=== PATIENT | female | born 1985 | race Caucasian/White ===

== ENCOUNTER 2021-09-14 17:16 | Emergency (ER) | payer OTHER, SELFPAY ==
--- NOTE | ~2021-09-14 | XR_ITS ---
EXAMINATION: [id number] INDICATION: Left rib pain TECHNIQUE: A frontal view of the chest and 3 views of the left ribs were obtained. COMPARISON: None. FINDINGS: The lungs are free of acute opacities. There is no pleural effusion or pneumothorax. The ca rdiomediastinal silhouette is normal. No displaced rib fracture is identified. IMPRESSION: 1. No acute cardiopulmonary abnormality or evidence of displaced rib fracture. Reviewed, dictated and finalized at location F. ING OR SKATING FRONT DESK CLERK
[2021-09-14 17:22] VITALS: BP 125/83; PULSE 98; RESP 20; TEMP 36.9; O2SAT 100
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
[2021-09-14 20:26] VITALS: BP 113/79; PULSE 93; RESP 16; O2SAT 99
[2021-09-14] MEDS: KETOROLAC 30 MG/ML VIAL (*BKC) IM (20:27)
[2021-09-14] MEDS: HYDROcodone/acetaminophen (*CRX) 5-325 MG TABLET 1 TAB PO (20:27)
[2021-09-14] MEDS: TETANUS,DIPHTHERIA,AC PERTUSSIS ADULT (0.5 ML) BOOSTRIX IM (21:59)
[2021-09-14 22:19] VITALS: BP 114/77; PULSE 96; RESP 16; O2SAT 100
== END 2021-09-14 22:02 | disposition home or self-care (01) ==
PROVIDERS: Emergency Provider Emergency Medicine; PCP Family Medicine
DX: S20.212A Contusion of left front wall of thorax, initial encounter (principal); Z23 Encounter for immunization; Y00.XXXA Assault by blunt object, initial encounter
CPT/HCPCS: 71101; 90471; 90715; 96372; 99283; A9270; J1885

== ENCOUNTER 2022-03-18 20:46 | Emergency (ER) | payer OTHER, SELFPAY ==
--- NOTE | ~2022-03-18 | CT_ITS ---
EXAMINATION: CT abdomen pelvis w con DATE: 03/18/2022 23:10 INDICATION: Abdominal pain and swelling TECHNIQUE: Computed tomography (CT) of the abdomen and pelvis was performed with 100 mL Omnipaque-300 intravenous contrast. Automated exposure control and iterative reconstruction technique were employe d. The dose-length product was 545.48 mGy-cm. COMPARISON: None FINDINGS: Mild linear atelectasis/scarring in the right lower lobe. Heart size is normal. No pericardial or ple ural effusion. Liver, gallbladder, spleen, pancreas, bilateral adrenal glands and kidneys are normal. Bladder is normal. Tampon within the vaginal vault. Anteverted uterus is normal. 2.8 cm left adnexal cyst and 10 mm peripherally enhancing likely corpus luteum cyst in the left ovary. 28.3 x 17.3 x 25. 9 cm complex cystic lesion arising from the right ovary with a few mildly thinned internal septations . No nodular soft tissue component appreciated. Small amount of likely physiologic free fluid in the cul-de-sac. No pathologically enlarged abdominal or pelvic lymphadenopathy. Bones are unremarkable. IMPRESSION: 1. 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 Recommend M1A1 TANK CREWMAN consultation. Reviewed, dictated and finalized at location B. IMPRESSION: 1. 28 x 17 x 26 cm complex cystic mass which appears to originate from the righ t adnexa with a few thin internal septations but no nodular soft tissue compone nts consistent with neoplasm and would favor cystadenoma over cystadenocarcinom a. Recommend M1A1 TANK CREWMAN consultation.
--- NOTE | ~2022-03-18 | XR_ITS ---
EXAMINATION: XR chest 2V 03/18/2022 21:48 INDICATION: Dyspnea. Lower extremity swelling and edema. PROCEDURE: 2 view chest COMPARISON: No prior studies for comparison. FINDINGS: The lungs are clear. The cardiomediastinal silhouette is within normal limits. There are no pleural effusions. There is no pneumothorax suspected. IMPRESSION: 1: NO ACUTE CARDIOPULMONARY DISEASE. Reviewed, dictated and finalized at location A.
[2022-03-18 20:56] VITALS: BP 121/88; PULSE 119; RESP 20; TEMP 36.7; O2SAT 100
[2022-03-18 21:35] VITALS: BP 124/90; PULSE 82; RESP 16; TEMP 36.8; O2SAT 98
--- NOTE | 2022-03-18 22:06 | ECG_ITS ---
Measurements Intervals [place] Rate: 81 P: 49 ME: 143 QRS: 38 QRSD: 80 T: 27 QT: 375 QTc: 437 Interpretive Statements SINUS RHYTHM BASELINE ARTIFACT- V1, V3-V5 NORMAL ECG Electronically Signed On 03-19-2022 6:38:40 CDT by Mick Quiroga D.O.
[2022-03-18 22:10] LABS: Basophils Percent Auto 0.3 % (0.2-1.2); Eosinophils Absolute Auto 0.3 K/mm3 (0-0.3); Eosinophils Percent Auto 3.2 % (0-4.4); Hematocrit 39.7 % (37.0-47.0); Hemoglobin 12.9 g/dL (12.0-15.0); Immature Granulocyte Absolute 0.03 K/mm3 (0.00-0.031); Immature Granulocyte Percent A 0.3 % (0-0.5); Lymphocytes Absolute Auto 2.46 K/mm3 (0.9-3.2); Lymphocytes Percent Auto 23.5 % (18.3-44.2); Mean Corpuscular HGB Conc 32.5 g/dl (32-36); Mean Corpuscular Hemoglobin 31.5 pg (26-34); Mean Corpuscular Volume 96.8 fl (80-100); Monocytes Absolute Auto 0.7 K/mm3 (0.1-0.6); Monocytes Percent Auto 6.9 % (2.6-8.5); Neutrophils Absolute Auto 6.9 K/mm3 (1.3-6.7); Neutrophils Percent Auto 65.8 % (45.5-73.1); Platelet Count Result 279 k/mm3 (150-375); Red Cell Distribution Width 12.3 % (11.5-14.5); White Blood Count 10.5 K/mm3 (4.5-10.0)
[2022-03-18 22:11] LABS: Appearance Urine Slightly Cloudy (Clear); Bilirubin Urine Negative (Negative); Color Urine Yellow (Yellow); Glucose Urine UA Negative (Negative); Ketones Urine Trace mg/dL (Negative); Leukocyte Esterase Ur Negative LEU/UL (Negative); Nitrate Urine Positive (Negative); Protein Urine Negative (Negative); Specific Grav Ur >= 1.030 (1.001-1.035); Urobilinogen Urine 0.2 mg/dL (<2.0)
--- NOTE | 2022-03-18 22:14 | ED.ABDPAIN ---
HPI - Abdominal Pain General Chief Complaint: Abdominal Pain Stated Complaint: swollen abd/ankles Time Seen by Provider: 03/18/22 21:18 Source: patient Mode of arrival: ambulatory Limitations: no limitations History of Present Illness HPI narrative: This is a 37 year old female that presents to the ER for abdominal swelling worsening over the last 6 months. Associated with lower extremity edema and constipation. Denies fever, chest pain, shortness of breath, or vomiting. Related Data Allergies Allergy/AdvReac Type Severity Reaction Status Date / Time No Known Allergies Allergy Unverified 11/20/18 14:52 Review of Systems Review of Systems: CONSTITUTIONAL: Denies fever CARDIOVASCULAR: Reports edema. Denies chest pain RESPIRATORY: Denies dyspnea. GASTROINTESTINAL: Reports abdominal pain. Denies nausea, vomiting, or diarrhea. GENITOURINARY: Denies dysuria All systems reviewed & are unremarkable except as noted in HPI and below PMFSH Past Medical History Medical History (Updated 03/19/22 @ 02:41 by Rona Nance PA-C) No active medical problems Social History Social History (Updated 03/18/22 @ 22:19 by Rona Nance PA-C) Alcohol intake: former Substance use: current Substance use type: marijuana and crack/cocaine Exam Narrative: GENERAL: Well-appearing, well-nourished, and in no acute distress. HEAD: Normocephalic, atraumatic. EYES: EOMI. CHEST: Clear to auscultation. No respiratory distress. No wheezes rales or rhonchi HEART: Regular rate and rhythm. No murmur heard. Normal peripheral pulses. ABDOMEN: Distended, nontender, normal active bowel sounds. EXTREMITIES: Normal range of motion. Non-pitting edema noted to the bilateral lower extremities. Normal DP pulses. No erythema SKIN: Warm, dry, no rash. NEURO: No focal deficits. Alert and oriented x3. PSYCH: Normal mood and affect Course Consultations Consultation #1: Spoke with Dr. Ziegler about patient and work-up with [facility]. Patient will be able to have close follow-up in clinic. Will be given number to make an appointment. Date: 03/19/22 Vital Signs Vital signs: Vital Signs Temperature 98.1 F 03/18/22 20:56 Pulse Rate 119 H 03/18/22 20:56 Respiratory Rate 20 03/18/22 20:56 Blood Pressure 121/88 03/18/22 20:56 Pulse Oximetry 100 03/18/22 20:56 Oxygen Delivery Room Air 03/18/22 20:56 Temperature 98.2 F 03/18/22 21:35 Pulse Rate 82 03/18/22 21:35 Respiratory Rate 16 03/18/22 21:35 Blood Pressure 124/90 03/18/22 21:35 Pulse Oximetry 98 03/18/22 21:35 Oxygen Delivery Room Air 03/18/22 21:35 MDM - Abdominal Pain MDM Narrative Medical decision making narrative: Patient presents to the emergency department for progressive abdominal and lower extremity swelling over the last 6 months. She is afebrile and nontoxic-appearing. Tachycardic upon arrival, this normalized without intervention. CBC with mild leukocytosis to 10.5. Metabolic panel and lipase without concerning findings. UA with 7 and 9 white blood cells, also moderate squamous epithelial cells. Patient denies any urinary symptoms. This will be sent for culture. Bedside test is negative. Chest x-ray without acute cardiopulmonary normality. EKG without concerning changes. CT scan of the abdomen and pelvis shows a 26 x 28 x 15 cm septated cyst filling the pelvis and lower abdomen which appears to be right ovarian in origin. Trace amount of free fluid in the pelvis is within normal limits. Patient was updated on case findings. Spoke with Dr. Ziegler about patient and work-up with [facility]. Patient will be able to have close follow-up in clinic. Will be given number to make an appointment. She is stable and felt appropriate for further outpatient evaluation. She was given warnings to return to the ER Lab Data Attestation: I reviewed the patient's lab results. Result diagrams: 03/18/22 22:0
[2022-03-18 22:16] LABS: Add Urine Microscopic? YES; Bacteria Urine Trace /hpf; Blood Urine Trace-Intact (Negative); Mucus Urine Rare /lpf; RBC Urine 0-2 /hpf (0-2); Squamous Epithelial Cell Urine Moderate /hpf (Few)
[2022-03-18 22:20] LABS: Prothrombin Time 13.2 Seconds (11.1-14.7)
[2022-03-18 22:22] LABS: Partial Thromboplastin Time 29.4 SECONDS (22.3-36.8)
[2022-03-18 22:23] LABS: Alanine Aminotransferase 20 U/L (6-35); Albumin Level 4.3 g/dL (3.5-5.1); Alkaline Phosphatase 64 U/L (38-126); Anion Gap 6 mmol/L (8-16); Aspartate Amino Transferase 24 U/L (14-36); Bilirubin,Total 0.3 mg/dL (0.2-1.3); Blood Urea Nitrogen 18 mg/dL (7-17); Calcium 9.1 mg/dL (8.4-10.2); Carbon Dioxide 25 mmol/L (22-30); Chloride 105 mmol/L (98-107); Estimated CRCL calculation 69 ml/min; Estimated Glomerular Filt Rate > 60; Glucose 88 mg/dL (65-110); Lipase 71 U/L (23-300); Potassium 3.9 mmol/L (3.4-5.0); Sodium 136 mmol/L (137-145)
[2022-03-18 22:30] LABS: NT Pro B Type Natriuretic Pept 69 pg/mL (5-100)
[2022-03-19 03:18] VITALS: BP 120/78; PULSE 72; RESP 18; O2SAT 98
[2022-03-23 02:32] LABS: CA-125 30 U/mL (<35)
== END 2022-03-19 03:21 | disposition home or self-care (01) ==
PROVIDERS: Physician Assistant; Emergency Provider Emergency Medicine; PCP Family Medicine
DX: R60.0 Localized edema (principal)
CPT/HCPCS: 36415; 71046; 74177; 80053; 81001; 81025; 83690; 83880; 85025; 85610; 85730; 86304; 87077; 87086; 87088; 87186; 93005; 99284; Q9967

== ENCOUNTER 2022-04-25 02:27 | Emergency (ER) | payer OTHER, SELFPAY ==
[2022-04-25] VITALS (8 sets, daily range): BP systolic 102–111; BP diastolic 73–84; PULSE 101–102; RESP 18; TEMP 36.7; O2SAT 99–100
--- NOTE | ~2022-04-25 | CT_ITS ---
EXAMINATION: CT abdomen pelvis w con DATE: 04/25/2022 04:27 INDICATION: Abdominal pain. Bleeding. TECHNIQUE: Computed tomography (CT) of the abdomen and pelvis was performed with 100 mL Omnipaque 350 intravenous contrast. Automated exposure control and iterative reconstruction technique were employe d. The dose-length product was 360.83 mGy-cm. COMPARISON: CT abdomen and pelvis 03/18/2022 FINDINGS: The visualized portions of the lung bases demonstrate mild atelectasis. No pleural effusion . The heart size is normal. No pericardial effusion. The liver, gallbladder, spleen, pancreas, adrena l glands, and kidneys are normal. There is a large volume of stool in the colon. There are no dilated loops of bowel. The appendix is normal. There is a small volume of ascites. There is free intraperit eubanks gas, consistent with recent surgery. Anterior skin sintia are noted. There is a small volume o f subcutaneous hematoma in the incision. There is mild lumbar spondylosis. IMPRESSION: 1. Small volume of ascites. 2. Small volume of subcutaneous hematoma in the midline incision. Reviewed, dictated and finalized at location A.
--- NOTE | 2022-04-25 02:46 | ED.WOUNDLAC ---
HPI - Wound/Laceration General Chief Complaint: Wound/Laceration Stated Complaint: laparotomy site; sintia coming out Time Seen by Provider: 04/25/22 02:36 Source: RN notes reviewed History of Present Illness HPI narrative: Patient presents emergency department from home for bleeding from surgical wound. Patient states she had a laparotomy performed by her TRACK REPAIR PERSON at [facility] 1 week ago on 04/17/2022. States that she is scheduled to be following up this coming Wednesday to get her sintia removed she said this evening she was walking to some activity when she began to have bleeding from the mid to lower section of the wound she states that the bleeding has stopped at this time she denies any fevers or chills states she does have some burning across the abdomen denies nausea vomiting or any other symptoms .. Patient states she has not contacted the physician who performed her surgery Dr. Han states she had initially gone to [facility] and had been waiting in the waiting room and secondary to the wait had come to come to [facility] for further evaluation Related Data Allergies Allergy/AdvReac Type Severity Reaction Status Date / Time No Known Allergies Allergy Unverified 11/20/18 14:52 Review of Systems Review of Systems: Gen.: Denies fevers or chills ENT: Denies congestion Respiratory: Denies shortness of breath or cough CV: Denies chest pain or palpitations GI: Denies abdominal pain nausea, emesis or diarrhea Musculoskeletal: Denies back pain or muscle pain Neuro: Denies numbness, tingling, weakness or focal weakness Skin: Denies rash Except as documented, all other systems reviewed and negative [facility] Past Medical History Medical History No active medical problems Social History Social History Alcohol intake: former Substance use: current Substance use type: marijuana and crack/cocaine Exam Narrative: APPEARANCE: No acute distress, nontoxic, resting in bed EYES: EOMI HEENT: Normocephalic, atraumatic, OMM RESPIRATORY: No respiratory distress Clear to auscultation bilaterally with no rhonchi wheezing or rales. CARDIOVASCULAR: Regular rate and rhythm without murmurs rubs or gallops. ABDOMINAL: Soft, midline surgical wound with sintia intact no active bleeding or drainage mild diffuse tenderness palpation no rebound or MUSCULOSKELETAl: Moves all extremities. No clubbing, cyanosis or edema. NEURO: Awake and alert. Following commands, speech normal, no focal deficits SKIN:: Warm, dry. No rashes lesions or abrasions PSYCHIATRIC: Normal affect/mood, Course Course Emergency Course: The patient has no bleeding while laying in bed whenever she gets up to use restroom she begins to bleed from the lower portion of the wound as well as from the middle portion the wound with bright red blood this is occurred 3 times in the ED once with going to the restroom once with going to CT scan and then when I had the patient sit up on the side of the bed to reassess Called and discussed with Dr. collier at [facility] on-call for patient's TRACK REPAIR PERSON at this time accepts patient in transfer to the facility she request Keflet be placed with 4 x 4's ABD and then a binder over the wound Discussed with patient plan for transfer in agreement at this time Vital Signs Vital signs: Vital Signs Temperature 98.1 F 04/25/22 02:32 Pulse Rate 101 H 04/25/22 02:32 Respiratory Rate 18 04/25/22 02:32 Blood Pressure 111/84 04/25/22 02:32 Pulse Oximetry 100 04/25/22 02:32 Oxygen Delivery Room Air 04/25/22 02:32 Temperature 98.1 F 04/25/22 02:32 Pulse Rate 101 H 04/25/22 02:32 Respiratory Rate 18 04/25/22 02:32 Blood Pressure 111/84 04/25/22 02:32 Pulse Oximetry 100 04/25/22 02:32 Oxygen Delivery Room Air 04/25/22 02:32 MDM - Wound/Laceration Lab Data Result diagrams: 08
[2022-04-25 03:04] LABS: Basophils Percent Auto 0.3 % (0.2-1.2); Eosinophils Absolute Auto 0.6 K/mm3 (0-0.3); Eosinophils Percent Auto 6.2 % (0-4.4); Hematocrit 38.5 % (37.0-47.0); Hemoglobin 12.7 g/dL (12.0-15.0); Immature Granulocyte Absolute 0.03 K/mm3 (0.00-0.031); Immature Granulocyte Percent A 0.3 % (0-0.5); Lymphocytes Absolute Auto 1.95 K/mm3 (0.9-3.2); Lymphocytes Percent Auto 19.2 % (18.3-44.2); Mean Corpuscular Hemoglobin 31.7 pg (26-34); Mean Platelet Volume 9.1 fl (7.4-10.4); Monocytes Absolute Auto 0.9 K/mm3 (0.1-0.6); Monocytes Percent Auto 8.5 % (2.6-8.5); Neutrophils Absolute Auto 6.6 K/mm3 (1.3-6.7); Neutrophils Percent Auto 65.5 % (45.5-73.1); Platelet Count Result 283 k/mm3 (150-375); Red Blood Count 4.01 M/mm3 (4.2-5.4); Red Cell Distribution Width 12.2 % (11.5-14.5); White Blood Count 10.1 K/mm3 (4.5-10.0)
[2022-04-25 03:14] LABS: Alanine Aminotransferase 23 U/L (6-35); Albumin Level 4.1 g/dL (3.5-5.1); Alkaline Phosphatase 63 U/L (38-126); Anion Gap 8 mmol/L (8-16); Aspartate Amino Transferase 26 U/L (14-36); Bilirubin,Total 0.2 mg/dL (0.2-1.3); Blood Urea Nitrogen 24 mg/dL (7-17); Calcium 9.6 mg/dL (8.4-10.2); Carbon Dioxide 29 mmol/L (22-30); Chloride 100 mmol/L (98-107); Estimated CRCL calculation 58 ml/min; Estimated Glomerular Filt Rate > 60; Glucose 87 mg/dL (65-110); Potassium 3.8 mmol/L (3.4-5.0); Sodium 137 mmol/L (137-145)
[2022-04-25 03:15] LABS: INR 1.1; Prothrombin Time 13.4 Seconds (11.1-14.7)
[2022-04-25 03:55] LABS: Appearance Urine Clear (Clear); Bilirubin Urine Negative (Negative); Blood Urine Negative (Negative); Color Urine Yellow (Yellow); Glucose Urine UA Negative (Negative); Ketones Urine Negative (Negative); Leukocyte Esterase Ur Negative LEU/UL (Negative); Nitrate Urine Negative (Negative); Protein Urine Negative (Negative); Urobilinogen Urine 0.2 mg/dL (<2.0)
[2022-04-25 03:59] LABS: Bacteria Urine Trace /hpf; Mucus Urine Rare /lpf; Squamous Epithelial Cell Urine Many /hpf (Few)
[2022-04-25 04:00] LABS: Add Urine Microscopic? NO
[2022-04-25] MEDS: ACETAMINOPHEN 500 MG TABLET 1000 MG PO (05:14)
[2022-04-25 07:09] LABS: SARS-CoV-2 RNA PCR Negative
== END 2022-04-25 10:35 | disposition left against medical advice (07) ==
PROVIDERS: Emergency Provider Emergency Medicine; PCP Family Medicine
DX: L76.22 Postprocedural hemorrhage of skin and subcutaneous tissue following other procedure (principal); Z20.822 Contact with and (suspected) exposure to COVID-19
CPT/HCPCS: 36415; 74177; 80053; 81003; 81025; 85025; 85610; 85730; 99284; A9270; C9803; Q9967; U0003; U0005

== ENCOUNTER 2025-06-05 12:39 | Emergency (ER) | payer BC, MEDICAID, SELFPAY ==
--- OUTSIDE RECORDS SUMMARY | 2001-04-19 08:30 | XMS_ITS | Continuity of Care Document ---
Author Organization [facility] Address [address] [place] [address] Phone Care Team Providers Care Pediatric Anesthesiologist Name Role Phone Camilo Sawyer DO Unavailable Unavailable Advance Directives Directive Yes / No Effective Date File Name No Information Encounters Encounter Description Practice Location Reason(s) For Visit Diagnoses Date Provider Providers Copied on Encounter [facility], [address], [place], [place], [id number], [place] tel:[phone] [facility] [place] No Information Digna Richardson. [address] [facility], [place], [address], [place]. tel: [phone] Family History Family Member Type Diagnosis Age At Onset No Information Payers Payer name Insurance type Covered constitution party ID Authoriza tion(s) No Information Social [...]
[2025-06-05 12:43] VITALS: BP 125/83; PULSE 91; RESP 14; TEMP 36.4; O2SAT 100
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
--- OUTSIDE RECORDS SUMMARY | 2025-06-05 12:43 | XMS_ITS | Clinical Summary ---
Author Organization [facility] Address [address] [place] [address] Care Team Providers Care Fire Alarm Technician Name Role Phone Aaron Waggoneraveskendall Nguyen Primary Care Provider Unavailab le Source Comments [facility],non-owned Affiliates and Associated Physician Practices is amultiple site organization consisting of ambulatory clinics and hospital sitesin [place], [place], [place] and [place]. This disclosure is being madepursuant to the Care Everywhere program and may not contain all information available regarding this patient. Last updated 18.[facility] Allergies Active Allergy Reactions Criticality Noted Date Comments Amoxicillin Other 04/16/2017 Yeast infection Medications * Be aware that medications may not be up to date on this document. Alwaysverify current medications with the patient. metroNIDAZOLE (METROGEL) 1 % gelIndications: Acne vulgaris,Other rosacea Apply to affected area on the face daily. 30 days supply. 60 g 11 05/31/2020 Active valACYclovir (VALTREX) 500 MG tabletIndicatio ns:H/O herpes labialis Take 1 tablet by mouth once daily 30 tablet 11 05/31/2020 Active doxycycline hyclate (VIBRAMYCIN) 100 MG tabletIndicatio ns:Acne Vulgaris Take 1 tablet by mouth 2 times daily Reasons: Common Acne 60 tablet 2 05/31/2020 Active Active Problems Problem Noted Date Diagnosed Date Other rosacea 06/03/2020 Acne vulgaris 06/03/2020 Perioral dermatitis 09/07/2018 Herpes labialis 09/07/2018 Nevus of neck 09/07/2018 Family History Medical History Relation Name Comments None Known Brother None Known Father None Known Maternal Aunt None Known Maternal Grandfather None Known Maternal Grandmother None Known Maternal Uncle None Known Mother None Known Other None Known Paternal Aunt None Known Paternal Grandfather None Known Paternal Grandmother None Known Paternal Uncle None Known Sister Asthma Neg Hx CVA Neg Hx Cancer - Breast Neg Hx Cancer - Other Neg Hx Cancer - Skin, Melanoma Neg Hx Cancer - Skin, Non Melanoma Neg Hx Eczema Neg Hx Hemophilia Neg Hx Psoriasis Neg Hx Relation Name Status Comments Brother Father Maternal Aunt Maternal Grandfather Maternal Grandmother Maternal Uncle Mother Other Paternal Aunt Paternal Grandfather Paternal Grandmother Paternal Uncle Sister Social History Tobacco Use Types Packs/Day Years Used Date Smoking Tobacco: Every Day Cigarettes 0.3 15 Smokeless Tobacco: Never Tobacco Cessation:Ready to Q uit: No; Counseling Given: Yes Alcohol Use Standard Drinks/Week Comments Yes 0 (1 standard drink = 0.6 oz pur e alcohol) Comments No Sex and Gender Information Value Date Recorded Sex Assigned at Not on file 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 Gender Identity Not on file Sexual Orientation Not on file Last Filed Vital Signs Vital Sign Reading Time Taken Comments Blood Pressure 110/80 02/15/2018 5:19 PM CDT Pulse 91 02/15/2018 5:19 PM CDT Temperature 36.6 C (97.9 F) 02/15/2018 5:19 PM CDT Respiratory Rate 18 02/15/2018 5:19 PM CDT Oxygen Saturation 98% 02/15/2018 5:19 PM CDT Inhaled Oxygen Concentration - - Weight 65.8 kg (145 lb) 02/15/2018 5:19 PM CDT Height 165.1 cm (5' 5) 02/15/2018 5:19 PM CDT Body Mass Index 24.13 02/15/2018 5:19 PM CDT Plan of Treatment Health Maintenance Due Date Last Done Comments LIPID TESTING 1984 MAMMOGRAM 1984 HIV SCREENING 02/23/1999 HEPATITIS C SCREENING 02/19/2002 DTAP/TDAP/TD VACCINES (1 - Tdap) 02/23/2003 HEPATITIS B VACCINE (1 of 3 - 19+ 3-dose series) 02/23/2003 HPV VACCINE (1 - 3-dose SCDM series) 02/23/2011 DEPRESSION SCREENING 09/06/2024 COVID-19 VACCINE (2023-2 5 season) 2025 INFLUENZA VACCINE (#1) 2025 ZOSTER VACCINE (1 of 2) 02/23/2034 HIB VACCINE Aged Out No longer eligi ble based on patient's age to complete this topic MENINGOCOCCAL (Group B) VACC INE SHARED DECISION-MAKING Aged Out No longer eligibl e based on patient's age to complete this topic MENINGOCOCCAL GROUPS A/C/Y/W VACCINE Aged Out No longer eligible b ased on patient's age to complete this topic PNEUMOCOCCAL VACCINE Aged Out No long er eligible based on patient's age to complete this topic [id number] [address] [facility] Care Teams Fire Alarm Technician Relationship Specialty Start Date End Date Wiliam Waggoner Update Information PCP - General 08/11/18
[2025-06-05 12:50] VITALS: BP 125/83; PULSE 85; RESP 14; TEMP 36.4; O2SAT 100
--- NOTE | 2025-06-05 13:00 | ED_ITS ---
HPI - Skin/Abscess/Foreign Bdy General Chief complaint: Skin/Abscess/Foreign Body Stated complaint: lump on neck Time Seen by Provider: 06/05/25 12:49 History of Present Illness HPI narrative: Patient is a 40-year-old female who presents to the ER with a ?lump on her left neck. She also endorses fatigue, sore throat, weight gain, headache, and hair loss. Patient reports her sore throat started yesterday and she believes she first noticed the lump in her neck two weeks ago. Patient reports the lump on her neck causes pain to radiate down her left shoulder and her left neck into her head. She endorses a history of ganglion neuroma, laparotomy and ovarian cyst. Patient denies any recent fevers, cough, congestion, or abdominal pain. Related Data Allergies Allergy/AdvReac Type Severity Reaction Status Date / Time amoxicillin AdvReac Mild Unknown Verified 06/05/25 12:51 Review of Systems 2 Review of Systems: All systems reviewed & are unremarkable except as noted in HPI and below PMFSH Past Medical History Medical History No active medical problems Social History Social History Alcohol intake: former Substance use: current Substance use type: marijuana and crack/cocaine Exam 2 Narrative: GENERAL: Well appearing, well-nourished, non-toxic, in no acute distress. HEAD: Normocephalic, atraumatic. NECK: Supple. + adenopathy L side, no masses. RESPIRATORY: Airway patent, respirations nonlabored. Clear to auscultation bilaterally, no rales, rhonchi, wheezing. CARDIOVASCULAR: Regular rate and rhythm without murmurs, rubs, or gallops. Peripheral pulses 2+ and equal bilaterally. ABDOMINAL: Soft, nontender, nondistended, no hepatosplenomegaly. Normoactive BS. MUSCULOSKELETAL: Moves all extremities. Strength/ROM intact without gross deformities. SKIN: Warm, dry, normal color. No rashes. NEURO: A&O X3. Speech clear. Cranial nerves II-XII intact. No ataxic movements. PSYCHIATRIC: Appropriate mood and affect. Normal interaction. Course Vital Signs Vital signs: Vital Signs Temperature 36.4 C 06/05/25 12:43 Pulse Rate 91 06/05/25 12:43 Respiratory Rate 14 06/05/25 12:43 Blood Pressure 125/83 06/05/25 12:43 Pulse Oximetry 100 06/05/25 12:43 Oxygen Delivery Room Air 06/05/25 12:43 Temperature 36.4 C 06/05/25 12:50 Pulse Rate 80 06/05/25 13:43 Respiratory Rate 17 06/05/25 13:43 Blood Pressure 117/74 06/05/25 13:43 Pulse Oximetry 97 06/05/25 13:43 Oxygen Delivery Room Air 06/05/25 12:43 MDM - Skin/Abscess/Foreign Bdy MDM Narrative Medical decision making narrative: Patient is a 40-year-old female who presents to the ER with a ?lump on her left neck. She also endorses fatigue, sore throat, weight gain, headache, and hair loss. Patient reports her sore throat started yesterday and she believes she first noticed the lump in her neck two weeks ago. Patient reports the lump on her neck causes pain to radiate down her left shoulder and her left neck into her head. She endorses a history of ganglion neuroma, laparotomy and ovarian cyst. Patient denies any recent fevers, cough, congestion, or abdominal pain. Labs Ordered: Strep swab, COVID/flu/RSV swab, TSH, mono test, CMP, CBC Imaging Ordered: None necessary Medications Ordered: None necessary Diagnosis: Cervical Lymphadenopathy, sore throat Patient Education/Shared MDM: Results of lab work shared with patient. Patient strongly advised to maintain hydration status upon discharge and follow-up with her PCP as needed. She will be discharged home with no new prescriptions. Strict return precautions provided. Patient verbalized understanding and is in agreement with plan. Vital signs stable at time of discharge. All questions answered. Differential Diagnosis Differential diagnosis: Likely other ([place], influenza, COVID, strep, dehydration) Lab Data Attestation: I reviewed the patient's lab results. 06/05/25 14:14 06/05/25 14:14 Labs: Lab Results 06/05/25 06/05/25 Range/Units 14:14 14:15 WBC 9.5 (4.5-10.0) K/mm3 RBC 4.26 (4.2-5.4) M/mm3 Hgb 13.5 (12.0-15.0) g/dL Hct 40.6 (37.0-47.0) % MCV 95.3 (80-100) fl MCH 31.7 (26-34) pg MCHC 33.3 (32-36) g/dl RDW 12.7 (11.5-14.5) % Plt Count 280 (150-375) k/mm3 MPV 9.5 (7.4-10.4) fl Immature Gran % (Auto) 0.4 (0-0.5) % Neut % (Auto) 63.8 (45.5-73.1) % Lymph % (Auto) 24.6 (18.3-44.2) % [place] % (Auto) 6.8 (2.6-8.5) % Eos % (Auto) 4.0 (0-4.4) % Baso % (Auto) 0.4 (0.2-1.2) % Lymph # (Auto) 2.34 (0.9-3.2) K/mm3 [place] # (Auto) 0.7 H (0.1-0.6) K/mm3 Eos # (Auto) 0.4 H (0-0.3) K/mm3 Baso # (Auto) 0.0 (0.0-0.1) K/mm3 Abs Immat Gran (auto) 0.04 H (0.00-0.031) K/mm3 Absolute Neuts (auto) 6.1 (1.3-6.7) K/mm3 Absolute Nucleated RBC 0.000 (0.0-0.012) K/mm3 Nucleated RBC % 0.0 (0.0-0.2) % Sodium 136 L (137-145) mmol/L Potassium 4.0 (3.4-5.0) mmol/L Chloride 107 (98-107) mmol/L Carbon Dioxide 22 (22-30) mmol/L Anion Gap 7 (4-12) mmol/L BUN 10 D (7-17) mg/dL Creatinine 0.74 (0.7-1.0) mg/dL Estim Creat Clear Calc 88 ml/min Estimated GFR > 60 (59 - ) Glucose 102 (65-110) mg/dL Calcium 8.6 (8.4-10.2) mg/dL Total Bilirubin 0.2 (0.2-1.3) mg/dL AST 24 (14-36) U/L ALT 21 (6-35) U/L Alkaline Phosphatase 75 (38-126) U/L Total Protein 6.8 (6.3-8.2) g/dL Albumin 4.1 (3.5-5.1) g/dL TSH (Reflex) 0.718 (0.465-4.68) uIU/mL Monoscreen Negative (Negative) Influenza A (RT-PCR) Negative (Negative) Influenza B (RT-PCR) Negative (Negative) RSV (RT-PCR) Negative (Negative) SARS-CoV-2 RNA (RT-PCR) Negative (Negative) Group A Strep (PCR) Not detected (Negative) Discharge Plan Discharge Clinical Impression: Adenopathy, cervical, Acute sore throat, Viral infection Patient Disposition: Home Condition: Stable Instructions: Antibiotic Form, Lymphadenopathy (ED) Additional Instructions: Please return to the ER with any worsening symptoms. Follow-up with primary care provider as needed and for regular appointments. Take all medications as prescribed, including regularly scheduled medications. You may use Tylenol and/or ibuprofen for pain control. Patient Language: Hungarian Prescriptions: No Action nitrofurantoin macrocrystal 100 mg capsule 100 mg PO Q12H 5 Days Qty: 10 0RF Rx Instructions: must administer with a meal/food Follow-up/Referrals: PHYSICIAN,PLYWOOD MATCHER [Primary Care Provider, Internal Medicine] Melida Akins DO [Physician, Family Practice] Referral Note: primary care provider Stand Alone Forms: Work/School Release IP Time of Disposition: 16:23
--- OUTSIDE RECORDS SUMMARY | 2025-06-05 13:23 | XMS_ITS | Clinical Summary ---
Author Organization 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 Stock Checker Name Role Phone Geni Dickinson MD Unavailable [phone] Wiliam Waggoner MD Primary Care Provider Allergies Active Allergy Reactions Criticality Noted Date [...] (03/31/2022): Added automatically from request for surgery [id number] Encounters Date Type Department Care Team Description 05/31/2025 1:15 AM CDT Telemedicine [facility] Virtual Care [address] [place] [phone] Di Franco NP Lump in neck (Primary Dx); Healthcare maintenance 05/31/2025 Patient Self-Triage [facility] [address] [place] [address] Mychart, Generic Provider from Last [...] on file Legal 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 This HPV test was performed at [facility] in [place], [place] utilizing the Gen-Probe Aptima assay. [facility]/04/09/2022 11:50 By this signature, I attest that the above diagnosis is based upon my personal examination of the slides(and/or other material indicated in the diagnosis). Chapincito Hernández DO Report Electronically Reviewed and Signed Out By Chapincito Hernández DO 04/09/2022 11:50:04 [place], CT(ASCP), [facility] Cervic[facility]aginal [facility]ology (Pap Test) Disclaimer: The [...] mass. The HPV test was performed by [facility], [address] [place] [address]. Report Images and scanned documents, if included only viewable in PDF version The performance characteristics of some immunohistochemical stains, in-situ hybridization and fluorescence in-situ hybridization tests and immunophenotyping by flow cytometry cited in this report (if any) were determined by the Surgical Pathology Department at [facility] as part of an ongoing senior software quality analyst program and in compliance with federally mandated [...] determined by the Surgical Pathology Department of [facility]. It has not been cleared or approved by the U. [place]. Food and Drug Administration. Geni Dickinson MD LAB CYTOLOGY ORDERABLES Final R esult PATHOLOGY [facility] [address] Floor [place], [place] [phone] from Last 3 Months or Most Recently Relevant to Health Maintenance Insurance [place] [id number] [facility] Member Subscriber Plan / Payer (Ef fective 2019-Present) Name:Bulmaro Pablo Relation to Subscriber:Self Name:Bulmaro Pablo Payer ID:[id number] (NAIC) Group ID:Not on file Type:MEDICAID RISK OTHER Address: ATTN: CLAIMS DEPT [address] [facility] [place] [id number] En [place] [address] Member Subscriber Plan / Payer (Ef fective 2021-Present) Name:Bulmaro Pablo Relation to Subscriber:Self Name:Bulmaro Pablo Payer ID:[id number] (NAIC) Group ID:Not on file Type:MEDICAID RISK OTHER Address: ATTN: CLAIMS DEPT [address] [facility] [place] [phone] [place] [address] [facility] Advance Directives For more information, please contact: [phone] * Full Code (Latest Code Status on File) Date Activated Date Inactivated Comments 04/17/2022 11:55 AM 04/19/2022 8:00 PM Care Teams Apparel Stock Checker Relationship Specialty Start Date End Date Wiliam Waggoner MD [address] [facility] [place] [address] PCP - General Family Medicine 05/04/22 Geni Dickinson MD [address] [facility] OBGYN GYNECOLOGIC ONCOLOGY, [address] [address] Consulting Physician Gynecologic Oncology 05/04/22
--- OUTSIDE RECORDS SUMMARY | 2025-06-05 13:23 | XMS_ITS | Data Portability ---
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 CXR: 03/18/22. D/w pt in detail about her findings, recent labs & imagines and further plan of care. Will do routine labs. Recent hospital records reviewed with pt. Diet and exercise explained in detail. Safe sex education given. Educated pt about alarming symptoms to monitor at home and call us back or get checked in ED. Pt verbalized understanding it. Cont f/u with Gyne at [place] as per schedule. Offered to refer to Psych/counsellor; but pt declined. HM: WWE - 03/27, normal as per pt. Cont f/u with Gyne as per schedule. Mammo - Never. No FH of breast CA. Flu - Pt declined. Tdap, Gardasil - At HD. F/u in 1-2 weeks. Annual labs in 11/27. 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 CT A&P with: 04/25/22. CXR: 03/18/22. Wt: 171(11/17/22) D/w pt in detail about her findings, recent labs & imagines and further plan of care. Meds as directed. Diet and exercise explained in detail. Educated pt about alarming symptoms to monitor at home and call us back or get checked in ED. Pt verbalized understanding it. Cont f/u with Gyne at [place] as per schedule. Offered to refer to Psych/counsellor; but pt declined. HM: WWE - 03/27, normal as per pt. Cont f/u with Gyne as per schedule. Mammo - Never. No FH of breast CA. Flu - Pt declined. Tdap, Gardasil - At HD. F/u in 1 month. CBC before next visit. Lipids in 02/26. Annual labs in 11/27. 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 CT A&P with: 04/25/22. CXR: 03/18/22. Wt: 171(11/17/22) [Pt stopped] D/w pt in detail about her findings, recent labs & imagines and further plan of care. Meds as directed. Diet and exercise explained in detail. Educated pt about alarming symptoms to monitor at home and call us back or get checked in ED. Pt verbalized understanding it. Cont f/u with Gyne at [place] as per schedule. Offered to refer to Psych/counsellor; but pt declined. HM: WWE - 03/27, normal as per pt. Cont f/u with Gyne as per schedule. Mammo - Never. No FH of breast CA. Flu - Pt declined. Tdap, Gardasil - At HD. F/u in 3 months. Lipids in 06/28. Annual labs in 11/27. [email or web address] Not available 03/16/2023 15:08:54 04/05/2024 04/05/2024 39 yo F with - PRE-OP EXAM - HLD - DEPRESSION, stable - ANXIETY, stable - OVERWEIGHT - EX-SMOKER (Quitted 04/27) - H/O LEUKCOCYTOSIS - H/O THORMBOCYTOSIS - H/O RT OVERIAL TUMOR REMOVAL (04/27) Annual labs: 11/04/22. CT A&P with: 04/25/22. CXR: 03/18/22. Wt: 171(11/17/22) - 166(04/05/24) D/w pt in detail about her findings, recent labs & imagines and further plan of care. Advised pt to f/u with her [facility] surgeon [facility] for any Pre-op labs/testing. Mammogram order given to pt. Pt is clinically cleared for the procedure and wants to proceed as per schedule. Advised pt to avoid Phentermine/Aspiri n/NSAIDs/vitamin supplementation 1 week before the surgery day. Meds as directed. Diet and exercise explained in detail. Educated pt about alarming symptoms to monitor at home and call us back or get checked in ED. Pt verbalized understanding it. Cont f/u with Gyne at [place] as per schedule. Offered to refer to Psych/counsellor; but pt declined. HM: WWE - 03/27, normal as per pt. Cont f/u with Gyne as per schedule. Mammo - Never. No FH of breast CA. Flu - Pt declined. Tdap, Gardasil - At HD. F/u in few weeks for Annual exam. Annual labs in 11/27. [email or web address] Not available 04/05/2024 16:13:13 Plan of Treatment Reminders Order Date Submit Date Provider Last Modified By Organization Details Last Modified Time Details Appointments None recorded. Lab lipid panel, serum 2022 023 [email or web address] [facility] (Lab), [address] [place], [address], 17:46:36 [facility] [address] [place], [address], 3 14:15:33 lipid panel, serum [address] (Lab), [address] [place], [address], 3 10:23:35 HbA1c (hemoglobin A1c), blood [address] (Lab), [address] [place], [address], 3 09:43:50 vitamin D, 25-hydroxy, total, serum [address] (Lab), [address] [place], [address], 3 09:44:46 CBC w/ auto diff 2022 023 [facility] (Lab), [address] [place], [address], 3 13:29:08 CMP, serum or plasma 2022 023 [facility] (Lab), [address] [place], [address], 3 13:34:04 lipid panel, serum 2022 023 [facility] (Lab), [address] [place], [address], 3 13:34:06 TSH, serum, reflex free T4 [address] (Lab), [address] [place], [address], 3 09:43:18 urinalysis complete, reflex culture [address] (Lab), [address] [place], [address], 3 09:43:33 vitamin B12 + folate, serum or blood 2022 023 [email or web address] [facility] (Lab), [address] [place], [address], 3 15:09:40 Referral None recorded. Procedures None recorded. Surgeries None recorded. Imaging XR, lumbosacral spine, 4 or more view [address] ([facility]), [address] [place], [address], 5 16:48:15 XR, elbow, 3 or more view [address] ([facility]), [address] [place], [address], 5 10:41:00 MAMMO, screening, bilateral - *Please call pt to schedule* 2023 024 [email or web address] [facility] ([facility]), [address] [place], [address], 4 12:04:00 Medication Orders cyclobenzap rine 10 mg tablet 2024 025 [facility] #[id number], [address] , [place], [place], [id number], 5 17:16:28 Solu-Medrol (PF) 125 mg/2 mL solution for injection 2024 025 [email or web address] Not available 5 17:35:08 Medrol (David) 4 mg tablets in a dose pack 2024 025 [facility] #63289, [address], [place], [place], [id number], 5 17:16:26 phentermine 37.5 mg tablet 2023 024 [email or web address] [facility] #92379, [address] [place], [place], [id number], 5 16:52:50 atorvastati n 10 mg tablet 2023 024 [email or web address] [facility] #76058, [address] [place], [place], [id number], 4 16:02:43 Plenity (Welcome Kit) 0.75 gram capsule 2022 023 Jeremias, [address] [place] [address], [place] [address], [place], [address], 4 15:55:48 doxycycline hyclate 100 mg capsule 2022 023 [email or web address] [facility] #67574, [address], [place], [id number], 4 15:55:35 atorvastati n 10 mg tablet 2022 023 SALMA [facility] #82816, [address] [place], [place], [id number], 3 14:57:55 ciprofloxac in 500 mg tablet 2022 023 [email or web address] [facility] #74368, [address], [place], [id number], 3 14:47:41 phentermine 15 mg capsule [email or web address] [place] [address] [facility] #81372, [address], [place], [id number], 15:01:14 atorvastati n 10 mg tablet 2022 023 SALMA [facility] #42980, [address], [place], [id number], 17:23:59 Patient TargetsNo targets recorded. Patient Instructions Encounter Date Encounter Id Patient Instructions Last Modified By Organization Details Last Modified Time 12/27/2024 [id number] When You Want to Lose Weight: Care Instructions [email or web address] Not available 12/27/2024 17:24:24 Reason for Referral None Reported. Results Created Date Observation Date Name Description Value Unit Range Abnormal Flag Note LastModifiedBy Organization Detail LastModifiedTime 11/05/1911/05/2022 CBC/C OMPLE TE BLD COUNT W/DIF F white blood cells 12.5 x10'3 /uL 4.2-10 .8 high Not Available [facility] (Lab) [address] [place], [address], 11/05/2022 13:29:08 11/05/19 23 11/05/2022 CBC/C OMPLE TE BLD COUNT W/DIF F red blood cells 4.68 x10'6 /uL 3.80-5 .20 Not Available [facility] (Lab) [address] [place], [address], 11/05/2022 13:29:08 11/05/1911/05/2022 CBC/C OMPLE TE BLD COUNT W/DIF F hemoglobin 14.9 g/dL 12.0-1 5.6 Not Available [facility] (Lab) [address] [place], [address], 11/05/2022 13:29:08 11/05/1911/05/2022 CBC/C OMPLE TE BLD COUNT W/DIF F hematocrit 44.9 % 35.7-4 5.7 Not Available [facility] (Lab) [address] [place], [address], 11/05/2022 13:29:08 11/05/19 23 11/05/2022 CBC/C OMPLE TE BLD COUNT W/DIF F mean red cell volume 95.9 fL 82.0-9 9.0 Not Available [facility] (Lab) [address] [place], [address], 11/05/2022 13:29:08 11/05/19 23 11/05/2022 CBC/C OMPLE TE BLD COUNT W/DIF F mean red cell hemoglobin 31.8 pg 27.0-3 3.0 Not Available [facility] (Lab) [address] [place], [address], 11/05/2022 13:29:08 11/05/19 23 11/05/2022 CBC/C OMPLE TE BLD COUNT W/DIF F mean RBC HGB concentratio n 33.2 g/dL 31.0-3 6.0 Not Available [facility] (Lab) [address] [place], [address], 11/05/2022 13:29:08 11/05/19 23 11/05/2022 CBC/C OMPLE TE BLD COUNT W/DIF F red cell distribution width 12.7 % 11.8-1 5.5 Not Available [facility] (Lab) [address] [place], [address], 11/05/2022 13:29:08 11/05/19 23 11/05/2022 CBC/C OMPLE TE BLD COUNT W/DIF F platelets 415 x10'3 /uL 150-40 0 high Not Available [facility] (Lab) [address] [place], [address], 11/05/2022 13:29:08 11/05/19 23 11/05/2022 CBC/C OMPLE TE BLD COUNT W/DIF F mean platelet volume 9.9 fL 9.0-12 .4 Not Available [facility] (Lab) [address] [place], [address], 11/05/2022 13:29:08 11/05/1911/05/2022 CBC/C OMPLE TE BLD COUNT W/DIF F neutrophils 62.0 % 39.0-7 2.0 Not Available [facility] (Lab) [address] [place], [address], 11/05/2022 13:29:08 11/05/19 23 11/05/2022 CBC/C OMPLE TE BLD COUNT W/DIF F lymphocytes 27.0 % 16.0-4 7.0 Not Available [facility] (Lab) [address] [place], [address], 11/05/2022 13:29:08 11/05/19 23 11/05/2022 CBC/C OMPLE TE BLD COUNT W/DIF F monocytes 6.5 % 5.0-12 .0 Not Available [facility] (Lab) [address] [place], [address], 11/05/2022 13:29:08 11/05/1911/05/2022 CBC/C OMPLE TE BLD COUNT W/DIF F eosinophils 3.7 % 1.0-7. 0 Not Available [facility] (Lab) [address] [place], [address], 11/05/2022 13:29:08 11/05/19 23 11/05/2022 CBC/C OMPLE TE BLD COUNT W/DIF F basophils 0.4 % 0.0-2. 0 Not Available [facility] (Lab) [address] [place], [address], 11/05/2022 13:29:08 11/05/19 23 11/05/2022 CBC/C OMPLE TE BLD COUNT W/DIF F immature granulocytes 0.4 % 0.00-0 .50 Not Available [facility] (Lab) [address] [place], [address], 11/05/2022 13:29:08 11/05/19 23 11/05/2022 CBC/C OMPLE TE BLD COUNT W/DIF F neutrophils, absolute count 7.77 x10'3 /uL 1.5-8. 0 Not Available [facility] (Lab) [address] [place], [address], 11/05/2022 13:29:08 11/05/19 23 11/05/2022 CBC/C OMPLE TE BLD COUNT W/DIF F lymphocytes, absolute count 3.38 x10'3 /uL 1.07-3 .43 Not Available [facility] (Lab) [address] [place], [address], 11/05/2022 13:29:08 11/05/19 23 11/05/2022 CBC/C OMPLE TE BLD COUNT W/DIF F monocytes, absolute count 0.81 x10'3 /uL 0.29-0 .99 Not Available [facility] (Lab) [address] [place], [address], 11/05/2022 13:29:08 11/05/19 23 11/05/2022 CBC/C OMPLE TE BLD COUNT W/DIF F eosinophils, absolute count 0.46 x10'3 /uL 0.02-0 .53 Not Available [facility] (Lab) [address] [place], [address], 11/05/2022 13:29:08 11/05/19 23 11/05/2022 CBC/C OMPLE TE BLD COUNT W/DIF F basophils, absolute count 0.05 x10'3 /uL 0.01-0 .08 Not Available [facility] (Lab) [address] [place], [address], 11/05/2022 13:29:08 11/05/19 23 11/05/2022 CBC/C OMPLE TE BLD COUNT W/DIF F immature granulocytes ,absolute 0.05 x10'3 /uL 0.00-0 .05 Not Available [facility] (Lab) [address] [place], [address], 11/05/2022 13:29:08 11/05/19 23 11/05/2022 CBC/C OMPLE TE BLD COUNT W/DIF F nucleated red blood cells 0.0 % -0 Not Available [facility] (Lab) [address] [place], [address], 11/05/2022 13:29:08 11/05/19 23 11/05/2022 CBC/C OMPLE TE BLD COUNT W/DIF F NRBC# 0.00 x10'3 /uL Not Available [facility] (Lab) [address] [place], [address], 11/05/2022 13:29:08 11/05/19 23 11/05/2022 COMPR EHENS GERRY METAB OLIC PANEL sodium 139 mmol/ L 137-14 5 Not Available [facility] (Lab) [address] [place], [address], 11/05/2022 13:34:04 11/05/19 23 11/05/2022 COMPR EHENS GERRY METAB OLIC PANEL potassium 4.5 mmol/ L 3.5-5. 1 Not Available [facility] (Lab) [address] [place], [address], 11/05/2022 13:34:04 11/05/19 23 11/05/2022 COMPR EHENS GERRY METAB OLIC PANEL chloride 104 mmol/ L 98-107 Not Available [facility] (Lab) [address] [place], [address], 11/05/2022 13:34:04 11/05/19 23 11/05/2022 COMPR EHENS GERRY METAB OLIC PANEL carbon dioxide 28 mmol/ L 22-30 Not Available [facility] (Lab) [address] [place], [address], 11/05/2022 13:34:04 11/05/19 23 11/05/2022 COMPR EHENS GERRY METAB OLIC PANEL anion gap 11.5 mmol/ L 14-22 low Not Available [facility] (Lab) [address] [place], [address], 11/05/2022 13:34:04 11/05/19 23 11/05/2022 COMPR EHENS GERRY METAB OLIC PANEL glucose 94 mg/dL 70-99 Not Available [facility] (Lab) [address] [place], [address], 11/05/2022 13:34:04 11/05/19 23 11/05/2022 COMPR EHENS GERRY METAB OLIC PANEL BUN 18 mg/dL 8-19 Not Available [facility] (Lab) [address] [place], [address], 11/05/2022 13:34:04 11/05/19 23 11/05/2022 COMPR EHENS GERRY METAB OLIC PANEL creatinine 0.94 mg/dL 0.66-1 .25 Not Available [facility] (Lab) [address] [place], [address], 11/05/2022 13:34:04 11/05/19 23 11/05/2022 COMPR EHENS GERRY METAB OLIC PANEL GFR >60 Refer ence Range : [place] ge GFR Healt hy Adult : >60 mL/mi n/1.7 3 m2 Chron ic Kidne y Disea se: 15-60 mL/mi n/1.7 3 m2 Kidne y Failu re: <15/m L/min /1.73 m2 www.n iddk. nih.g ov The MDRD study equat ion has not been valid ated in child alissa <18 years of age; pregn ant women ; the elder ly >85 years of age; or in some racia l or ethni c subgr oups, such as Hispa nics. Outsi de the valid ated ishaan eters , estim ated GFR is less accur ate, requi ring clini karlie judgm ent on a case- by-ca se basis . Clini karlie inter preta tion for other races and ages must be made by the clini kirk. The MDRD study equat ion has not been valid ated for the evalu ation of serum creat inine relat ed to nutri vishal l statu s or medic ation usage . For perso ns <18 years of age, a pedia tric GFR calcu lator is avail able on the [facility] websi te: https ://ww w.kid bing.o rg/pr ofess ional s/kdo qi/gf r_cal culat or Not Available [facility] (Lab) [address] [place], [address], 11/05/2022 13:34:04 11/05/19 23 11/05/2022 COMPR EHENS GERRY METAB OLIC PANEL alkaline phosphatase 104 U/L 38-126 Not Available [facility] (Lab) [address] [place], [address], 11/05/2022 13:34:04 11/05/19 23 11/05/2022 COMPR EHENS GERRY METAB OLIC PANEL alanine aminotransfe rase 25 U/L 0-35 Not Available [facility] (Lab) [address] [place], [address], 11/05/2022 13:34:04 11/05/19 23 11/05/2022 COMPR EHENS GERRY METAB OLIC PANEL aspartate aminotransfe rase 27 U/L 15-37 Not Available [facility] (Lab) [address] [place], [address], 11/05/2022 13:34:04 11/05/19 23 11/05/2022 COMPR EHENS GERRY METAB OLIC PANEL bilirubin, total 0.40 mg/dL 0.20-1 .30 Not Available [facility] (Lab) [address] [place], [address], 11/05/2022 13:34:04 11/05/19 23 11/05/2022 COMPR EHENS GERRY METAB OLIC PANEL calcium 9.9 mg/dL 8.4-10 .2 Not Available [facility] (Lab) [address] [place], [address], 11/05/2022 13:34:04 11/05/19 23 11/05/2022 COMPR EHENS GERRY METAB OLIC PANEL total protein 7.6 g/dL 6.3-8. 2 Not Available [facility] (Lab) [address] [place], [address], 11/05/2022 13:34:04 11/05/19 23 11/05/2022 COMPR EHENS GERRY METAB OLIC PANEL albumin 4.6 g/dL 3.4-5. 0 Not Available [facility] (Lab) [address] [place], [address], 11/05/2022 13:34:04 11/05/19 23 11/05/2022 COMPR EHENS GERRY METAB OLIC PANEL globulin 3.0 g/dL 2.6-4. 2 Not Available [facility] (Lab) [address] [place], [address], 11/05/2022 13:34:04 11/05/19 23 11/05/2022 COMPR EHENS GERRY METAB OLIC PANEL A/G ratio 1.5 ratio 1.0-2. 0 Not Available [facility] (Lab) [address] [place], [address], 11/05/2022 13:34:04 11/05/19 23 11/05/2022 LIPID PANEL cholesterol 216 mg/dL 140-19 9 high NIH [place] NSUS RECOM MENDA TION FOR SETH STERO L: ADULT CHILD LOW RISK: <200 <170 BORDE RLINE : <200- 239 ----- HIGH RISK: >240 >200 Not Available [facility] (Lab) [address] [place], [address], 11/05/2022 13:34:06 11/05/19 23 11/05/2022 LIPID PANEL triglyceride s 149 mg/dL 0-150 NIH [place] NSUS REPOR T RECOM MENDA TION FOR TRIGL YCERI BACILIO: ADULT CHILD LOW RISK: <150 ----- BODER LINE: 150-1 99 ----- HIGH RISK: >200 ----- Not Available [facility] (Lab) [address] [place], [address], 11/05/2022 13:34:06 11/05/19 23 11/05/2022 LIPID PANEL HDL cholesterol 81 mg/dL 40- Not Available [facility] (Lab) [address] [place], [address], 11/05/2022 13:34:06 11/05/19 23 11/05/2022 LIPID PANEL LDL cholesterol, calculated 105 mg/dL 0-130 NIH [place] NSUS REPOR T RECOM MENDA TIONS FOR LDL: ADULT CHILD LOW RISK <130 <110 (OPTI MAL LDL) <100 ----- BORDE RLINE : 130-1 59 ----- HIGH RISK: >160 >130 A TRIGL YCERI DE RESUL T >400 INVAL IDATE S THE CALCU LATIO N FOR LDL FRACT IONAT ION - THE LDL RESUL T WILL NOT BE REPOR IVETT. Not Available [facility] (Lab) [address] [place], [address], 11/05/2022 13:34:06 11/05/19 23 11/05/2022 VITAM IN D 25-HY DROXY [id number] 33.3 NG/mL 30-100 Vitam in D Statu s: Defic ient: <20 ng/mL Insuf ficie nt: 20-29 ng/mL Suffi cient : 30-10 0 ng/mL Not Available [facility] (Lab) [address] [place], [address], 11/05/2022 13:36:01 11/05/19 23 11/05/2022 TSH W/REF DEVAN FT4 TSH with reflex free T4 1.450 uIU/m L 0.465- 4.680 Not Available [facility] (Lab) [address] [place], [address], 11/05/2022 13:46:48 11/05/1911/05/2022 URINA LYSIS COMPL ETE/I RIS W/RFX color LIGHT- YELLOW Not Available [facility] (Lab) [address] [place], [address], 11/05/2022 14:16:23 11/05/19 23 11/05/2022 URINA LYSIS COMPL ETE/I RIS W/RFX appear EXTRA TURBID abnormal Not Available [facility] (Lab) [address] [place], [address], 11/05/2022 14:16:23 11/05/19 23 11/05/2022 URINA LYSIS COMPL ETE/I RIS W/RFX specific gravity 1.018 1.001- 1.030 Not Available [facility] (Lab) [address] [place], [address], 11/05/2022 14:16:23 11/05/19 23 11/05/2022 URINA LYSIS COMPL ETE/I RIS W/RFX pH 6.5 pH_un its 5.0-9. 0 Not Available [facility] (Lab) [address] [place], [address], 11/05/2022 14:16:23 11/05/19 23 11/05/2022 URINA LYSIS COMPL ETE/I RIS W/RFX leukocytes 25 corinne/u L negati ve- abnormal Not Available [facility] (Lab) [address] [place], [address], 11/05/2022 14:16:23 11/05/19 23 11/05/2022 URINA LYSIS COMPL ETE/I RIS W/RFX nitrite 1+ negati ve- abnormal Not Available [facility] (Lab) [address] [place], [address], 11/05/2022 14:16:23 11/05/19 23 11/05/2022 URINA LYSIS COMPL ETE/I RIS W/RFX protein NEGATI VE mg/dL negati ve- Not Available [facility] (Lab) [address] [place], [address], 11/05/2022 14:16:23 11/05/19 23 11/05/2022 URINA LYSIS COMPL ETE/I RIS W/RFX glucose NORMAL mg/dL normal - Not Available [facility] (Lab) [address] [place], [address], 11/05/2022 14:16:23 11/05/19 23 11/05/2022 URINA LYSIS COMPL ETE/I RIS W/RFX ketones NEGATI VE mg/dL negati ve- Not Available [facility] (Lab) [address] [place], [address], 11/05/2022 14:16:23 11/05/19 23 11/05/2022 URINA LYSIS COMPL ETE/I RIS W/RFX urobilinogen NORMAL mg/dL normal - Not Available [facility] (Lab) [address] [place], [address], 11/05/2022 14:16:23 11/05/19 23 11/05/2022 URINA LYSIS COMPL ETE/I RIS W/RFX bilirubin NEGATI VE mg/dL negati ve- Not Available [facility] (Lab) [address] [place], [address], 11/05/2022 14:16:23 11/05/19 23 11/05/2022 URINA LYSIS COMPL ETE/I RIS W/RFX blood 0.06 mg/dL negati ve- abnormal Not Available [facility] (Lab) [address] [place], [address], 11/05/2022 14:16:23 11/05/19 23 11/05/2022 URINA LYSIS COMPL ETE/I RIS W/RFX white blood cells 0-8 /i??h pfi?? 0-8 Not Available [facility] (Lab) [address] [place], [address], 11/05/2022 14:16:23 11/05/19 23 11/05/2022 URINA LYSIS COMPL ETE/I RIS W/RFX red blood cells 11-20 /i??h pfi?? 0-4 abnormal Not Available [facility] (Lab) [address] [place], [address], 11/05/2022 14:16:23 11/05/19 23 11/05/2022 URINA LYSIS COMPL ETE/I RIS W/RFX bacteria OCCASI ONAL abnormal Not Available [facility] (Lab) [address] [place], [address], 11/05/2022 14:16:23 11/05/19 23 11/05/2022 URINA LYSIS COMPL ETE/I RIS W/RFX mucous OCCASI ONAL /i??l pfi?? abnormal Not Available [facility] (Lab) [address] [place], [address], 11/05/2022 14:16:23 11/05/19 23 11/05/2022 URINA LYSIS COMPL ETE/I RIS W/RFX squamous epithelial PACKED FIELD /i??l pfi?? abnormal Not Available [facility] (Lab) [address] [place], [address], 11/05/2022 14:16:23 11/05/19 23 11/05/2022 URINA LYSIS COMPL ETE/I RIS W/RFX calcium oxalate crystal OCCASI ONAL /i??h pfi?? none seen- abnormal Not Available [facility] (Lab) [address] [place], [address], 11/05/2022 14:16:23 11/05/19 23 11/05/2022 VITAM IN B12 (MP LSIA ) vb12 666 pg/mL 239-93 1 Not Available [facility] (Lab) [address] [place], [address], 11/05/2022 14:27:09 11/05/19 23 11/05/2022 FOLAT E, SERUM /PLAS MA folate 7.68 NG/mL 2.76-2 0.0 Not Available [facility] (Lab) [address] [place], [address], 11/05/2022 14:27:35 11/05/19 23 11/05/2022 HEMOG LOBIN A1C HA1C 4.8 % 4.0-6. 0 Diabe pasha Scree soham Crite danny: <5.7% Consi stent with absen ce of diabe pasha 5.7-6 .4% Consi stent with incre ased risk for diabe pasha (pred iabet es) >OR=6 .5% Consi stent with diabe pasha REFER ENCE: Diabe pasha Care 2016, 39(Mccauley ppl.1 ):s13 -s22 Not Available [facility] (Lab) [address] [place], [address], 11/05/2022 22:25:45 11/05/19 23 11/04/2022 CULTU RE URINE urc ===== ===== ===== ===== ===== ===== ===== ===== ===== ===== ===== ===== ===== ===== ===== ===== ===== ===== ===== ===== ===== ===== ===== ===== CULTU RE NO.: [id number] Exam Statu s: Final Exam Type: CULTU RE URINE ===== ===== ===== ===== ===== ===== ===== ===== ===== ===== ===== ===== ===== ===== ===== ===== ===== ===== ===== ===== ===== ===== ===== ===== Cultu re Repor t: Organ ism #01 Esche luh a coli (escc ol) Antib iotic s escco l Achie vable Achie vable () Dosag e Serum Level Urine Level mcg/m l mcg/m l Neida redd <=2 S 021M Ampic illin 8 S 021M Ampic illin /Sulb actam 4 S 021M Cefaz sanam <=4 S 021M Cefep jackie <=1 S 021M Cefox itin <=4 S 021M Ceftr iaxon e <=1 S 021M Cipro floxa redd <=0.2 5 S 021M ESBL NEG - 021M Genta micin <=1 S 021M Levof loxac in <=0.1 2 S 021M Merop enem <=0.2 5 S 021M Piper acill in./T azaba <=4 S 021M Tobra mycin <=1 S 021M Trmet hopri m.Sul fa <=20 S 021M rt - Test Card Code AST-G N 021M o2 - Final Organ ism ESCHE R 021M af - Antib iotic Fami TRIME T 021M af - Antib iotic Famil y Na ap - Pheno type Name WILD 021M ap - Pheno type Name Nitro furan toin <=16 S 021M Not Available [facility] (Lab) [address] [place] [address], [address], 11/07/2022 08:13:02 03/12/20 23 03/12/2023 CBC W/O DIFFE RENTI AL white blood cells 9.8 x10'3 /uL 4.2-10 .8 Not Available [facility] (Lab) [address] [place], [address], 03/12/2023 14:15:33 03/12/20 23 03/12/2023 CBC W/O DIFFE RENTI AL red blood cells 4.42 x10'6 /uL 3.80-5 .20 Not Available [facility] (Lab) [address] [place], [address], 03/12/2023 14:15:33 03/12/20 23 03/12/2023 CBC W/O DIFFE RENTI AL hemoglobin 14.1 g/dL 12.0-1 5.6 Not Available [facility] (Lab) [address] [place], [address], 03/12/2023 14:15:33 03/12/20 23 03/12/2023 CBC W/O DIFFE RENTI AL hematocrit 42.6 % 35.7-4 5.7 Not Available [facility] (Lab) [address] [place], [address], 03/12/2023 14:15:33 03/12/20 23 03/12/2023 CBC W/O DIFFE RENTI AL mean red cell volume 96.4 fL 82.0-9 9.0 Not Available [facility] (Lab) [address] [place], [address], 03/12/2023 14:15:33 03/12/20 23 03/12/2023 CBC W/O DIFFE RENTI AL mean red cell hemoglobin 31.9 pg 27.0-3 3.0 Not Available [facility] (Lab) [address] [place], [address], 03/12/2023 14:15:33 03/12/20 23 03/12/2023 CBC W/O DIFFE RENTI AL mean RBC HGB concentratio n 33.1 g/dL 31.0-3 6.0 Not Available [facility] (Lab) [address] [place], [address], 03/12/2023 14:15:33 03/12/20 23 03/12/2023 CBC W/O DIFFE RENTI AL red cell distribution width 12.3 % 11.8-1 5.5 Not Available [facility] (Lab) [address] [place], [address], 03/12/2023 14:15:33 03/12/20 23 03/12/2023 CBC W/O DIFFE RENTI AL platelets 315 x10'3 /uL 150-40 0 Not Available [facility] (Lab) [address] [place], [address], 03/12/2023 14:15:33 03/12/20 23 03/12/2023 CBC W/O DIFFE RENTI AL mean platelet volume 9.9 fL 9.0-12 .4 Not Available [facility] (Lab) [address] [place], [address], 03/12/2023 14:15:33 03/12/20 23 03/12/2023 LIPID PANEL cholesterol 166 mg/dL 140-19 9 NIH ALIDA NSUS RECOM MENDA TION FOR SETH STERO L: ADULT CHILD LOW RISK: <200 <170 BORDE RLINE : <200- 239 ----- HIGH RISK: >240 >200 Not Available [facility] (Lab) [address] [place], [address], 03/12/2023 14:34:18 03/12/20 23 03/12/2023 LIPID PANEL triglyceride s 171 mg/dL 0-150 high NIH ALIDA NSUS REPOR T RECOM MENDA TION FOR TRIGL YCERI BACILIO: ADULT CHILD LOW RISK: <150 ----- BODER LINE: 150-1 99 ----- HIGH RISK: >200 ----- Not Available [facility] (Lab) [address] [place], [address], 03/12/2023 14:34:18 03/12/20 23 03/12/2023 LIPID PANEL HDL cholesterol 79 mg/dL 40- Not Available [facility] (Lab) [address] [place], [address], 03/12/2023 14:34:18 03/12/20 23 03/12/2023 LIPID PANEL LDL cholesterol, calculated 53 mg/dL 0-130 NIH ALIDA NSUS REPOR T RECOM MENDA TIONS FOR LDL: ADULT CHILD LOW RISK <130 <110 (OPTI MAL LDL) <100 ----- BORDE RLINE : 130-1 59 ----- HIGH RISK: >160 >130 A TRIGL YCERI DE RESUL T >400 INVAL IDATE S THE CALCU LATIO N FOR LDL FRACT IONAT ION - THE LDL RESUL T WILL NOT BE REPOR IVETT. Not Available [facility] (Lab) [address] [place], [address], 03/12/2023 14:34:18 05/10/20 24 05/09/2024 scree soham breas t jazmin, bilat [facility] [address] [place] [address] Patien t Name: BULMARO NARVAEZ Access ion #: [id number] Sex: F : 1984 6 Locati on: RAD Attend ing Physic lela: KARIE WAGGONER Orderi ng Physic lela: KARIE WAGGONER Exam Date: 05/09/20 24 2:39 PM Exam Name: MG PATRICKDeven BREAST JAZMIN BILAT Admitt ing Diagno sis(es ): MAMMOG HALLIE REPORT - FINAL EXAM: SCRDeven BREAST JAZMIN BILAT HISTOR Y: SCREEN ING MAMMOG RITIKA 39-yea r-old female with no curren t breast compla ints. COMPAR [place]: None availa ble, baseli ne study. TECHNI QUE: Bilate ral CC and MLO views of the breast s were perfor med. Digita l Mammog hallie images were obtain ed. CAD (compu ter assist ed detect ion) was utiliz ed. 3D Digita l breast tomosy nthesi s was perfor med and used in the interp retati on of images . FINDIN GS: There are scatte red areas of fibrog landul ar densit y. No masses , asymme tries, suspic ious calcif icatio ns, or fuad ectura l Page 1 of 2 [facility] Steven gomez Name: BULMARO NARVAEZ Access ion #: [id number] Sex: F : 1984 6 Exam Date: 05/09/20 24 2:39 PM Exam Name: MG SCRN BREAST JAZMIN BILAT Admitt ing Diagno sis(es ): distor tion are seen. IMPRES J LUIS: BIRADS 1: Assess ment comple te. Negati ve. Recomm end annual screen ing mammog hallie. Accord ing to the [employer], yearly mammog antoine are recomm ended starti ng at age 40 and contin uing as long as the woman is in good health . Clinic al Breast Exam should be part of the period ic health exam-a bout every 3 years for women in their 20s and 30s and every year for women 40 and over. Breast self-e xam is an option for women in their 20s. Any breast change noted on the breast self-e xam she would be report ed prompt ly to the [facility]. A negati ve mammog hallie report should not discou rage follow -up or biopsy of a clinic ally signif icant findin g and/or abnorm ality. Dense breast tissue may obscur e small neopla sms. This steven gomez has been entere d into a mammog hallie remind er system with a target date for her next mammog ritika. Create d and electr onical ly signed by: Chapincito sparks MD Signed Date: 05/10/20 9:29 AM (CT) Dictat ed by: Chapincito sparks MD (CT) (CT) Page 2 of 2 [email or web address] [facility] (Imaging) [address] [place], [address], 05/10/2024 15:33:24 06/22/20 24 06/22/2024 CT, abdom en + pelvi s, w/ contr ast No observ ation record ed. [facility] [address] [place], [address], 06/26/2024 15:29:13 Result Notes None recorded. Problems Name Problem SNOMED Code Status Onset Date Resolution Date Notes Provider Name and Address Organization Details Recorded Time Seroma following procedure 7167054796119 05 Active Wiliam Waggoner MD [address] [facility], [address] [address], [place], [address] , [email or web address] 5 17:25:41 Anxiety disorder 591196909 Active 2020 Not Available [facility] 3 10:45:38 Overweight 606554526 Active 2020 Not Available [facility] 3 10:45:38 Depressive disorder 38899868 Active 2020 Not Available [facility] 3 10:45:38 History of malignant neoplasm of ovary 065700459 Active 2022 Not Available [facility] 3 10:45:38 Ex-smoker 0862677 Active 2022 Not Available [facility] 3 10:45:38 Vitamin D deficiency 81955564 Active 2022 Wiliam Waggoner MD [address] [place] [address], [place], [address] , [employer] 3 18:08:39 Fatigue 86539488 Active 2022 Wiliam Waggoner MD [address] [place] [address], [place], [address] , [place] [facility] 3 18:12:05 Leukocytos is 833086995 Active 2022 Wiliam Waggoner MD [address], [place], [address] , [place] [facility] 3 17:20:17 Hyperlipid emia 20898675 Active 2022 Wiliam Waggoner MD [address], [place], [address] , [place] [facility] 3 17:20:22 Urinary tract infectious disease 40674139 Active 2022 Wiliam Waggoner MD [address], [place], [address] , [place] [facility] 3 17:21:10 Thrombocyt osis 8532336 Active 2022 Wiliam Waggoner MD [address], [place], [address] , [place] [facility] 3 17:23:31 Hypertrigl yceridemia 608529034 Active 2022 Wiliam Waggoner MD [address], [place], [address] , [place] [facility] 3 14:56:00 Acne 01052925 Active 2022 Wiliam Waggoner MD [address], [place], [address] , [place] [facility] 3 15:01:36 Chronic low back pain 173494780 Active 2024 Wiliam Waggoner MD [address], [place], [address] , [place] [facility] 5 17:12:00 Left side sciatica 2846812950577 04 Active 2024 Wiliam Waggoner MD [address], [place], [address] , [facility] [employer] [facility] [employer] [facility] 17:12:07 Pain of right elbow joint 0078478936941 9109 Active 2024 Wiliam Waggoner MD [address] [facility], [address] [address], [place], [address] , [facility] [employer] [facility] 17:12:59 Tendinitis of right elbow 1172655581764 9108 Active 2024 Wiliam Waggoner MD [address] [facility], [address] [address], [place], [address] , [facility] [employer] [facility] [employer] [facility] 17:23:04 Problem Notes None recorded. Procedures Surgical History Date Name Laterality Status Provider Name and Address Organization Details Recorded Time 022 operation on ovary completed Not Available [facility] 11/04/2022 10:42:14 other completed Not Available [facility] 11/04/2022 10:42:14 rhinoseptoplasty completed Not Available [facility] 11/04/2022 10:42:14 Imaging Results None recorded. Procedure Notes None recorded. Medical Equipment None Reported. Allergies Allergen ID Allergen Name Allergen Category Reaction Reaction Severity Criticality Documentation Date Start Date Code Code System Note Provider Name and Address Organization Details Recorded Time 22814 amoxicill in medicatio n Not available Not available Not available 11/04/2022 723 RxNorm Other react ions and sever ities : 'Adve rse react ion to subst ance' . Wiliam Waggoner MD [address] [facility], [address] [address], [place], [address], [facility] [employer] [facility] 17:25:15 Medications Name Sig Start Date Stop Date Status Note LastModified by Organization Details LastModified Time cyclobenzap rine 10 mg tablet TAKE 1 TABLET BY MOUTH EVERY 12 HOURS NEEDED active Not Available Not Available No t Available bupropion HCl SR 150 mg tablet,12 hr sustained-r elease Take 1 tablet twice a day by oral route as directed for 30 days. 09/29 completed Not Available Not Available Not Available venlafaxine ER 37.5 mg capsule,ext ended release 24 hr TK 1 C PO QD IN THE MORNING 12/19 completed Not Available Not Available Not Available venlafaxine ER 75 mg capsule,ext ended release 24 hr TK ONE C PO BID UTD 12/19 completed Not Available Not Available Not Available doxycycline hyclate 100 mg capsule TAKE 1 CAPSULE BY MOUTH TWICE DAILY DIRECTED active Not Available Not Available No t Available nicotine 14 mg/24 hr daily transdermal patch Apply 1 patch every day by transderm al route as directed for 30 days. 09/29 completed Not Available Not Available Not Available cetirizine 10 mg tablet TK 1 T PO QD 12/19 completed Not Available Not Available Not Available atorvastati n 10 mg tablet TAKE 1 TABLET BY MOUTH EVERY DAY AT BEDTIME active Not Available Not Available No t Available tizanidine 4 mg tablet TAKE 1 TABLET BY MOUTH EVERY 6 HOURS NEEDED 09/29 completed Not Available Not Available Not Available clarithromy redd 500 mg tablet 12/19 completed Not Available Not Available Not Available hydrocodone 5 mg-acetamin ophen 325 mg tablet TAKE ONE TO TWO TS PO Q 4-6 H PRN 12/19 completed Not Available Not Available Not Available [employer]370 76 % intravenous solution 100 mL by intraven. route. 06/22 completed Not Available Not Available Not Available ondansetron HCl 4 mg tablet TK 1 T PO Q 12 H 12/19 completed Not Available Not Available Not Available phentermine 15 mg capsule TAKE 1 CAPSULE BY MOUTH EVERY DAY IN THE MORNING active Not Available Not Available No t Available hydroxyzine pamoate 50 mg capsule TK ONE C PO QHS 12/19 completed Not Available Not Available Not Available phentermine 37.5 mg tablet TAKE 1 TABLET BY MOUTH EVERY DAY IN THE MORNING 12/27 completed Not Available Not Available Not Available acyclovir 400 mg tablet TK 1 T PO BID 12/19 completed Not Available Not Available Not Available valacyclovi r 500 mg tablet TAKE 1 TABLET BY MOUTH EVERY DAY 11/04 completed Not Available Not Available Not Available ciprofloxac in 500 mg tablet TAKE 1 TABLET BY MOUTH EVERY 12 HOURS FOR 7 DAYS DIRECTED 03/16 completed Not Available Not Available Not Available sulfamethox azole 800 mg-trimetho prim 160 mg tablet 12/19 completed Not Available Not Available Not Available tramadol 50 mg tablet TAKE ONE TABLET BY MOUTH EVERY 6 HOURS NEEDED 12/27 completed Not Available Not Available Not Available acetaminoph en 500 mg tablet 09/29 completed Not Available Not Available Not Available triamcinolo ne acetonide 0.1 % topical cream 12/19 completed Not Available Not Available Not Available bupropion HCl SR 100 mg tablet,12 hr sustained-r elease 12/19 completed Not Available Not Available Not Available carbamazepi ne 200 mg tablet TK 1 T PO Q 12 H UTD 12/19 completed Not Available Not Available Not Available doxycycline monohydrate 100 mg capsule 12/19 completed Not Available Not Available Not Available nitrofurant oin macrocrysta l 100 mg capsule TAKE 1 CAPSULE BY MOUTH EVERY 12 HOURS FOR 5 DAYS 09/29 completed Not Available Not Available Not Available buspirone 10 mg tablet TK 1 T PO EVERY 12 HRS NEEDED FOR ANXIETY. 11/04 completed Not Available Not Available Not Available docusate sodium 100 mg capsule 09/29 completed Not Available Not Available Not Available Xylocaine 20 mg/mL (2 %) injection solution 20 mL by injection route. 06/22 completed Not Available Not Available Not Available buspirone 7.5 mg tablet 12/19 completed Not Available Not Available Not Available Banophen 25 mg capsule TAKE 1 TO 2 CAPSULE BY MOUTH EVERY 4 TO 6 HOURS NEEDED 04/05 completed Not Available Not Available Not Available diclofenac sodium 75 mg tablet,yumiko yed release 12/19 completed Not Available Not Available Not Available hydrochloro thiazide 25 mg tablet TAKE 1 TABLET BY MOUTH DAILY 12/27 completed Not Available Not Available Not Available mupirocin 2 % topical ointment 12/19 completed Not Available Not Available Not Available fluvoxamine 50 mg tablet 12/19 completed Not Available Not Available Not Available sodium chloride 0.9 % intravenous solution 50 mL by intraven. route. 06/22 completed Not Available Not Available Not Available ibuprofen 600 mg tablet 09/29 completed Not Available Not Available Not Available polyethylen e glycol 3350 17 gram/dose oral powder 09/29 completed Not Available Not Available Not Available methylpredn isolone 4 mg tablets in a dose pack FOLLOW PACKAGE DIRECTION S active Not Available Not Available No t Available ipratropium bromide 42 mcg (0.06 %) nasal spray 12/19 completed Not Available Not Available Not Available cefdinir 300 mg capsule TAKE 1 CAPSULE BY MOUTH TWICE DAILY 04/05 completed Not Available Not Available Not Available fluticasone propionate 50 mcg/actuati on nasal spray,suspe nsion U 1 SPRAY IEN BID 12/19 completed Not Available Not Available Not Available metronidazo le 0.75 % topical gel 12/19 completed Not Available Not Available Not Available doxycycline hyclate 100 mg tablet TAKE ONE TABLET BY MOUTH TWICE A DAY FOR 7 DAYS 12/27 completed Not Available Not Available Not Available amoxicillin 875 mg-potassiu m clavulanate 125 mg tablet TK 1 T PO BID 12/19 completed Not Available Not Available Not Available oxycodone 5 mg tablet 09/29 completed Not Available Not Available Not Available aripiprazol e 5 mg tablet 12/19 completed Not Available Not Available Not Available erythromyci n with ethanol 2 % topical solution APPLY TO AREAS PRONE TO BREAKOUTS ON FACE BID 12/19 completed Not Available Not Available Not Available metronidazo le 1 % topical gel HADLEY AA ON FACE QD 12/19 completed Not Available Not Available Not Available Solu-Medrol (PF) 125 mg/2 mL solution for injection Take 125 mg by injection route for 1 day. 2024 active pt hien well Not Available Not Available Not Available Plenity (Welcome Kit) 0.75 gram capsule Take 3 capsules twice a day by oral route before meals for 30 days. 04/05 completed Not Available Not Available Not Available Vitals Date Recorded Body height Body mass index (BMI) Body weight Body temperature Heart rate Oxygen saturation Oxygen saturation in Arterial blood by Pulse oximetry Respiratory rate Systolic And Diastolic Provider Name and Address Organization Details Last Updated DateTime 3 165.1 cm 28 kg/m2 24731.5 2 g 97.8 [degF] 74 /min 99 % 99 % 16 /min 118/74 mm[Hg] Arabella Bliss RN [place] [facility] [place] [facility] [employer] 3 17:54:46 Date Recorded Body height Body mass index (BMI) Body weight Body temperature Heart rate Oxygen saturation Oxygen saturation in Arterial blood by Pulse oximetry Respiratory rate Systolic And Diastolic Provider Name and Address Organization Details Last Updated DateTime 3 165.1 cm 28.5 kg/m2 30499.3 g 97.8 [degF] 93 /min 98 % 98 % 16 /min 110/76 mm[Hg] Arabella Bliss RN [facility] [employer] [facility] 3 17:12:38 Date Recorded Body height Body mass index (BMI) Body weight Body temperature Oxygen saturation Oxygen saturation in Arterial blood by Pulse oximetry Heart rate Systolic And Diastolic Provider Name and Address Organization Details Last Updated DateTime 5 165.1 cm 27.7 kg/m2 47438.7 3 g 97.4 [degF] 97 % 97 % 87 /min 110/68 mm[Hg] Deepti Adler RN [facility] [employer] 5 17:10:16 Date Recorded Body height Body mass index (BMI) Body weight Body temperature Heart rate Respiratory rate Oxygen saturation Oxygen saturation in Arterial blood by Pulse oximetry Pain severity - 0-10 verbal numeric rating [Score] - Reported Systolic And Diastolic Provider Name and Address Organization Details Last Updated DateTime 3 165.1 cm 29.7 kg/m2 22035.5 4 g 98.3 [degF] 96 /min 20 /min 97 % 97 % 0 130/80 mm[Hg] Lisandro Lobo [facility] [employer] 3 14:50:25 Date Recorded Heart rate Provider Name an d Address Organization Details Last Updated DateTime 04/05/2024 90 /min Breanne Adan [address] [facility], [address] [address], [place], [address], [facility] [employer] [facility] 04/05/2024 15:49:57 Date Recorded Body height Body mass index (BMI) Body weight Body temperature Respiratory rate Oxygen saturation Oxygen saturation in Arterial blood by Pulse oximetry Systolic And Diastolic Provider Name and Address Organization Details Last Updated DateTime 4 165.1 cm 27.6 kg/m2 13641.6 8 g 98.1 [degF] 20 /min 99 % 99 % 132/78 mm[Hg] Lisandro Lobo [employer] [facility] 4 15:47:28 Social History Question Answer Notes LastModified by [employer] Details LastModified Time Tobacco Smoking Status Former Smoker Wiliam Waggoner MD [address], [facility] [address], [place], [address], [employer] [facility] [employer] 11/04/2022 18:10:16 In The 14 Days Before Symptom Onset, Have You Had Close Contact With A Laboratory-confirm ed COVID-19 While That Case Was Ill? No [id number] Information not available 11/04/2022 In The 14 Days Before Symptom Onset, Have You Had Close Contact With A Person Who Is Under Investigation For COVID-19 While That Person Was Ill? No [id number] Information not available 11/04/2022 What Type Of Diet Are You Following? REGULAR Information n ot available 11/04/2022 How Much Tobacco Do You Smoke? No [email or web address] Information not available 11/04/2022 Do You Have Any Dietary Restrictions? No [email or web address] Information not available 11/04/2022 Sex: Unknown Functional Status Question Answer Note LastModified by [employer] Details LastModified Time What is your exercise level? Occasional [email or web address] Information not available 11/04/2022 Mental Status None recorded. Family History Relationship Description Onset Age of this Age Resolved Age Notes LastModified by Organization Details LastModified Time Unspecified Relation Hypertensive disorder [id number] Not available 11/04/2022 10:42:18 Unspecified Relation Diabetes mellitus [id number] Not available 11/04/2022 10:42:18 Unspecified Relation Non-Hodgkin' s lymphoma (clinical) [id number] Not available 11/04/2022 10:42:18 Unspecified Relation Leukemia [id number] Not available 11/04/2022 10:42:18 Unspecified Relation Hypertensive disorder [id number] Not available 11/04/2022 13:29:56 Unspecified Relation Diabetes mellitus [id number] Not available 11/04/2022 13:29:56 Unspecified Relation Non-Hodgkin' s lymphoma (clinical) [id number] Not available 11/04/2022 13:29:57 Unspecified Relation Leukemia [id number] Not available 11/04/2022 13:29:57 Medical History Condition Response BLINDNESS N RHEUMATIC FEVER N KIDNEY STONES N BLADDER PROBLEMS N MRSA N OTHER # 1 N POLIO N LUNG DISEASE/DISORDER N RADIATION / CHEMOTHERAPY N COPD N Other # 2 N BLOOD DISEASES N SURGERY N EAR OR HEARING PROBLEMS N MUMPS N FEMALE PROBLEMS / INFECTIONS N DEPRESSION (INCLUDING POST ) N BOWEL PROBLEMS N STROKE/TIA N THYROID DISEASE N ULCERS N BENIGN PROSTATIC HYPERPLASIA N MEASLES N CERVICALGIA N TB SKIN TEST N MYOCARDIAL INFARCTION N PARAPELGIA N OBESITY N GERD/NAUSEA N ANEURYSM N URINARY/BLADDER/KIDNEY PROBLEMS N CORONARY ARTERY DISEASE (CAD) N MENIERE'S DISEASE N ADDICTION CONCERNS N ENDOMETRIOSIS N USE OF BLOOD THINNERS N SKIN PROBLEMS N EMPHYSEMA N GASTROINTESTINAL DISORDER N MUSCLE,JOINT OR BONE PROBLEMS N GASTROINTESTINAL BLEEDING N BLOOD CLOTS N ASTHMA N CATARACTS N ERECTILE DYSFUNCTION N GI PROBLEMS N CHF N Low Testosterone N NEUROPATHY N INFERTILITY N AIDS/HIV N FRACTURES N CHEMOTHERAPY / RADIATION N VISION/EYE PROBLEMS N LIVER DISEASE N MALE HYPOGONADISM N HYPERTENSION N ANXIETY DISORDER N BLOOD TRANSFUSION N ANEMIA/BLOOD DISORDER N CHRONIC EAR INFECTIONS N BRONCHITIS N TUBERCULOSIS N GLAUCOMA N FOOT PROBLEM N DIVERTICULITIS N SLEEP APNEA N CHICKENPOX N ALLERGIES/HAYFEVER N INFECTIOUS DISEASE N PROSTATE N HEART ARRHYTHMIA N INSOMNIA N HIGH CHOLESTEROL / HYPERLIPIDEMIA N EYE PROBLEMS N HYPERTHYROIDISM N EATING DISORDER N NEUROLOGICAL PROBLEMS N EDEMA N CHRONIC PAIN SYNDROME N HYPOTHYROIDISM N CAROTID BLOCKAGE N CONSTIPATION N BACK / NECK PROBLEMS N HAVE YOU BEEN HOSPITALIZED OR SEEN IN [facility] IN THE PAST YEAR ? N ATHEROSCLEROSIS N BREAST PROBLEMS N DIALYSIS N ECZEMA N FIBROMYALGIA N OSTEOPOROSIS N ARTHRITIS N NO SIGNIFICANT PAST MEDICAL HISTORY N APPENDICITIS N DIABETES, TYPE N BAD TEETH N HEARTBURN / REFLUX N ADD/ADHD N AFIB N AUTISM SPECTRUM DISORDER (ASD) N HEPATITIS / LIVER DISEASE N PULMONARY DISEASE N GOUT N SLEEP DISORDER N ALZHEIMER'S DISEASE N PAIN N DEMENTIA N HERPES N SEIZURES/EPILEPSY N HEADACHES/MIGRAINES N VASCULAR DISEASE N PACEMAKER N DIZZINESS N HEART DISEASE/HEART PROBLEMS N KIDNEY DISEASE N SCARLET FEVER N MULTIPLE SCLEROSIS N DEVELOPMENTAL OR BEHAVIORAL DISORDERS N MENTAL DISORDER/ILLNESS N CANCER: SPECIFY N CARDIAC ARRHYTHMIA N PNEUMONIA N ATRIAL FIBRILLATION N Gall Stones N PULMONARY EMBOLISM N AUTOIMMUNE DISEASE N Gynecological HistoryNo gynecological history recorded. Obstetrics History GPAL:G 0 P 0 0 0 0 Past Encounters Encounter ID Performer Location Encounter Start Date Encounter Closed Date Diagnosis/Indication Diagnosis SNOMED-CT Code Diagnosis ICD10 Code Diagnosis IMO Codes Diagnosis Note [id number] Wiliam Waggoner MD [address] [address] 12/19/2020 00:00:00 12/19/2020 18:16:12 [id number] Wiliam Waggoner MD [address] [address] 09/29/2022 00:00:00 09/29/2022 16:55:10 [id number] Wiliam Waggoner MD [address] [address] 11/04/2022 17:38:54 11/04/2022 18:27:53 Adult health examination 381169041 Z00.00 Anxiety disorder 7623289 06 F41.9 Overweight 076634458 E66 .3 Ex-smoker 3007778 Z87.89 1 Vitamin D deficiency 347 51766 E55.9 Fatigue 82270388 R53.83 [id number] Wiliam Waggoner MD [address] [address] 11/17/2022 17:04:22 11/17/2022 18:01:24 Leukocytosis 606252889 D72.829 Hyperlipidemia 19872057 E78.5 Urinary tr act infectious disease 92860939 N39.0 Thrombocytosis 3845543 D 75.839 Overweight 756317282 E66 .3 [id number] Wiliam Waggoner MD [address] [address] 03/16/2023 14:43:20 03/16/2023 15:11:56 Leukocytosis 443311808 D72.829 resolved Hyperlipidemia 74198890 E78.5 Thrombocytosis 1306542 D 75.839 resolved Overweight 427531837 E66 .3 Hypertriglyceridemia 302 258684 E78.2 Acne 69688591 L70.9 History of malignant neoplasm of ovary 544143108 Z85.43 [id number] Wiliam Waggoner MD [facility] [address] [place] [address] 1 04/05/2024 15:40:21 04/05/2024 16:13:30 Leukocytosis 799283609 D72.829 history Hyperlipidemia 90996675 E78.5 Thrombocytosis 6236312 D 75.839 history Overweight 600405446 E66 .3 Screening mammography 24 782537 Z12.31 Pre-surger y evaluation 170411455 Z01.468 [id number] Wiliam Waggoner MD [facility] [address] [place] [address] 12/27/2024 16:50:23 12/27/2024 17:29:10 Chronic low back pain 761034306 M54.50 Pt declined for HCG. Left side sciatica 16257 82942 51465 M54.32 Pain of ri ght elbow joint 9398167351 1551603 M25.521 RICE explained. Tendinitis of right elbow 3435027161 3463368 M67.823 Overweight 422972945 E66 .3 Hyperlipidemia 10798708 E78.5 Hypertriglyceridemia 302 473573 E78.2 Health Concerns Section Related Observation LastModified by Organization Detai ls LastModified Time None Recorded Concern Status LastModified by Organization Details LastModified Time None Recorded Advance Directives Directive None Recorded Payers Insurance Date Sequence Insurance Name Policy Number Policy Aldridge Covered Member ID Aldridge Member ID Guarantor Name 12/27/2024 1 [facility] - DOS ON OR AFTER 21 (MEDICAID REPLACEMENT - HMO) Bulmaro Pablo [id number] Bulmaro Pablo Notes Date Note Type Note Provider Name and Address Organization Details Recorded Time 11/04/2022 text/html Pt is here for her annual exam. Wants to get regular labs. Pt wants to try med for her wt concerns. Pt was seen in ED in 03/27 due to abdominal pain and was diagnosed with a huge mass over her Rt ovary (15 lbs). So pt was seeing Gyne at [facility] and she got laparotomy done to remove it and it came back benign. No chemo/radiation needed. Pt is f/u with them every 6 months now. No more concerns with it.Denies any mood problem/concerns. Pt has stopped all her meds and is doing overall well. Denies any mood swings/SI/HI.Pt has quitted smoking since 04/27 and is doing well. Wiliam Waggoner MD [address], [address], [place], [address], [employer] [facility] [employer] 11/04/2022 18:21:15 11/17/2022 text/html Pt is here for f/u on her annual labs. Pt wants to try med for her wt concerns.Pt was seen in ED in 03/27 due to abdominal pain and was diagnosed with a huge mass over her Rt ovary (15 lbs). So pt was seeing Gyne at [facility] and she got laparotomy done to remove it and it came back benign. No chemo/radiation needed. Pt is f/u with them every 6 months now. No more concerns with it.Denies any mood problem/concerns. Pt has stopped all her meds and is doing overall well. Denies any mood swings/SI/HI.Pt has quitted smoking since 04/27 and is doing well. Wiliam Waggoner MD [address], [address], [place], [address], [employer] 11/17/2022 17:52:11 03/16/2023 text/html ACV + FUV: C/o acne for last few months. Pt has seen Derm for this in the past few yrs ago. PT wants to try Plenity for her wt concerns. Doing overall well. Denies any problem with meds.Pt was seen in ED in 03/27 due to abdominal pain and was diagnosed with a huge mass over her Rt ovary (15 lbs). So pt was seeing Gyne at [facility] and she got laparotomy done to remove it and it came back benign. No chemo/radiation needed. Pt is f/u with them every 6 months now. No more concerns with it.Denies any mood problem/concerns. Pt has stopped all her meds and is doing overall well. Denies any mood swings/SI/HI.Pt has quitted smoking since 04/27 and is doing well. Wiliam Waggoner MD [address], [address], [place], [address], [email or web address] 03/16/2023 15:09:49 04/05/2024 text/html ACV: Pt is f/u with breast surgeon in [place], [place] and will be going for b/l breast augmentation & Liposuction procedures with them on 05/31/24. So pt needs Mammogram order and physical exam. They will be doing all pre-op labs, EKG and other testing there. Pt also wants to be on Phentermine for couple months for her wt concerns. Denies any chest pain/sob/palpitati ons/n/v/c/d/fever/ chills/urinary symptoms.Pt was seen in ED in 03/27 due to abdominal pain and was diagnosed with a huge mass over her Rt ovary (15 lbs). So pt was seeing Gyne at [facility] and she got laparotomy done to remove it and it came back benign. No chemo/radiation needed. Pt is f/u with them every 6 months now. No more concerns with it.Denies any mood problem/concerns. Pt has stopped all her meds and is doing overall well. Denies any mood swings/SI/HI.Pt has quitted smoking since 04/27 and is doing well. Wiliam Waggoner MD [address], [address], [place], [address], [email or web address] 04/05/2024 16:13:16 12/27/2024 text/html ACV: C/o lower back area pain with Lt LE radiation for last 4 months. Denies any recent fall/trauma/heavy lifting. Denies any urinary symptoms. C/o Rt lateral elbow area pain for last 2.5 weeks. Denies any chance of . Denies any workman's comp. Last visit in 03/29. Wiliam Waggoner MD [address], [address], [place], [address], [email or web address] 12/27/2024 17:26:12 OBGyn Episode No OBEpisode recorded.
--- OUTSIDE RECORDS SUMMARY | 2025-06-05 13:23 | XMS_ITS | Clinical Summary ---
Author Organization [facility] Address [address] [place] [address] Care Team Providers Care Top Screw Name Role Phone Aaron Waggoneraveskendall Nguyen Primary Care Provider Unavailab le Source Comments [facility],non-owned Affiliates and Associated Physician Practices is amultiple site organization consisting of ambulatory clinics and hospital sitesin [place], [place], [place] and [place]. This disclosure is being madepursuant to the Care Everywhere program and may not contain all information available regarding this patient. 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
[2025-06-05 13:43] VITALS: BP 117/74; PULSE 80; RESP 17; O2SAT 97
[2025-06-05 14:23] LABS: Hematocrit 40.6 % (37.0-47.0); Hemoglobin 13.5 g/dL (12.0-15.0); Immature Granulocyte Percent A 0.4 % (0-0.5); Lymphocytes Absolute Auto 2.34 K/mm3 (0.9-3.2); Mean Corpuscular HGB Conc 33.3 g/dl (32-36); Mean Corpuscular Hemoglobin 31.7 pg (26-34); Mean Corpuscular Volume 95.3 fl (80-100); Nucleated Red Blood Cells Absolute Auto 0.000 K/mm3 (0.0-0.012); Nucleated Red Blood Cells Perc 0.0 % (0.0-0.2); Platelet Count Result 280 k/mm3 (150-375); Red Blood Count 4.26 M/mm3 (4.2-5.4); White Blood Count 9.5 K/mm3 (4.5-10.0)
[2025-06-05 14:34] LABS: Negative Monotest Control Negative (Negative); Positive Monotest Control Positive (Positive)
[2025-06-05 14:36] LABS: Alanine Aminotransferase 21 U/L (6-35); Albumin Level 4.1 g/dL (3.5-5.1); Alkaline Phosphatase 75 U/L (38-126); Anion Gap 7 mmol/L (4-12); Aspartate Amino Transferase 24 U/L (14-36); Bilirubin,Total 0.2 mg/dL (0.2-1.3); Blood Urea Nitrogen 10 mg/dL (7-17); Calcium 8.6 mg/dL (8.4-10.2); Carbon Dioxide 22 mmol/L (22-30); Chloride 107 mmol/L (98-107); Estimated CRCL calculation 88 ml/min; Estimated Glomerular Filt Rate > 60; Glucose 102 mg/dL (65-110); Potassium 4.0 mmol/L (3.4-5.0); Sodium 136 mmol/L (137-145); Total Protein 6.8 g/dL (6.3-8.2)
[2025-06-05 14:47] LABS: Strep Group A RT-PCR NOT DETECTED (Negative)
[2025-06-05 14:59] LABS: Influenza A QL RT-PCR Negative (Negative); Influenza B QL RT-PCR Negative (Negative); RSV RNA, RT-PCR Negative (Negative); SARS-CoV-2 RNA PCR Negative (Negative)
[2025-06-05 15:07] LABS: Thyroid Stimulating Hormone Reflex 0.718 uIU/mL (0.465-4.68)
[2025-06-05] MEDS: KETOROLAC (*BKC) 60 MG/2 ML VIAL IM (16:32)
[2025-06-05 16:36] VITALS: BP 117/92; PULSE 89; RESP 16; O2SAT 100
== END 2025-06-05 16:37 | disposition home or self-care (01) ==
PROVIDERS: Emergency Provider Registered Nurse
DX: J02.9 Acute pharyngitis, unspecified (principal); R59.0 Localized enlarged lymph nodes; B34.9 Viral infection, unspecified; Z20.822 Contact with and (suspected) exposure to COVID-19
CPT/HCPCS: 36415; 80053; 84443; 85025; 86308; 87637; 87651; 96372; 99283; J1885

== ENCOUNTER 2025-06-09 11:13 | Emergency (ER) | payer BC, MEDICAID, SELFPAY ==
--- OUTSIDE RECORDS SUMMARY | 2001-04-19 08:30 | XMS_ITS | Continuity of Care Document ---
Author Organization [facility] Address [address] [place] [address] Phone Care Team Providers Care Escape Wheel Tooth Cutter Name Role Phone Camilo Sawyer DO Unavailable Unavailable Advance Directives Directive Yes / No Effective Date File Name No Information Encounters Encounter Description Practice Location Reason(s) For Visit Diagnoses Date Provider Providers Copied on Encounter [facility], [address], [place], [place], [id number], [place] tel:[phone] [facility] [place] No Information Digna Richardson. [address] [facility], [place], [address], [place]. tel: [phone] Family History Family Member Type Diagnosis Age At Onset No Information Payers Payer name Insurance type Covered green party ID Authoriza tion(s) No Information Social History Type Description Quantity Date Captured Comments Sex Female Smoking Status No Information Chief Complaint And Reason For Visit No Information Reason For Referral Reason For Referral No Information History Of Present Illness Encounter Date Complaint History Of Prese nt Illness No Information Functional Status Date Functional Assessmen t No Information Instructions Date Instruction Additional Infor mation No Information Assessments Type Assessment Date No Information Patient Care Teams Name Effective Dates (start - stop) Status Members No Information
--- OUTSIDE RECORDS SUMMARY | 2001-04-19 08:30 | XMS_ITS | Continuity of Care Document ---
Author Organization [facility] Address [address] [place] [address] Phone Care Team Providers Care District Sales Leader Name Role Phone Camilo Sawyer DO Unavailable Unavailable Advance Directives Directive Yes / No Effective Date File Name No Information Encounters Encounter Description Practice Location Reason(s) For Visit Diagnoses Date Provider Providers Copied on Encounter [facility], [address], [place], [place], [id number], [place] tel:[phone] [facility] [place] No Information Digna Richardson. [address] [facility], [place], [address], [place]. tel: [phone] Family History Family Member Type Diagnosis Age At Onset No Information Payers Payer name Insurance type Covered republican ID Authoriza tion(s) No Information Social History [...]
--- OUTSIDE RECORDS SUMMARY | 2025-06-09 11:16 | XMS_ITS | Clinical Summary ---
Author Organization [facility] Address [address] [place] [address] Care Team Providers Care Counter Manager Name Role Phone Geni Dickinson MD Unavailable [phone] Wiliam Waggoner MD Primary Care Provider [phone] Allergies Active Allergy Reactions Criticality Noted Date [...] (03/31/2022): Added automatically from request for surgery [id number] Encounters Date Type Department Care Team Description 05/31/2025 1:[address] [facility] Virtual Care [address] [place] [address] Di Franco NP Lump in neck (Primary Dx); Healthcare maintenance 05/31/2025 Patient Self-Triage 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 This HPV test was performed at [facility] in [place], [place] utilizing the Gen-Probe Aptima assay. [facility]/04/09/2022 11:50 By this signature, I attest that the above diagnosis is based upon my personal examination of the slides(and/or other material indicated in the diagnosis). Chapincito Hernández DO Report Electronically Reviewed and Signed Out By Chapincito Hernández DO 04/09/2022 11:50:04 [place]aj[place], CT(ASCP), [facility] Cervicovaginal Cytology (Pap Test) Disclaimer: The [...] mass. The HPV test was performed by [facility], [address] [place] [address]. Report Images and scanned documents, if included only viewable in PDF version The performance characteristics of some immunohistochemical stains, in-situ hybridization and fluorescence in-situ hybridization tests and immunophenotyping by flow cytometry cited in this report (if any) were determined by the Surgical Pathology Department at [facility] as part of an ongoing fiberglass quality technician program and in compliance with [...] determined by the Surgical Pathology Department of [facility]. It has not been cleared or approved by the U. S. Food and Drug Administration. Geni Dickinson MD LAB CYTOLOGY ORDERABLES Final R esult PATHOLOGY [facility] [address]rd Floor [place], [place] [phone] from Last 3 Months or Most Recently Relevant to Health Maintenance Insurance [place] [id number] [facility] Member Subscriber Plan / Payer (Ef fective 2019-Present) Name:Bulmaro Pablo Relation to Subscriber:Self Name:Bulmaro Pablo Payer ID:[id number] (NAIC) Group ID:Not on file Type:MEDICAID RISK OTHER Address: ATTN: CLAIMS DEPT [address] [facility] [place] [id number] En [place] [address] Member Subscriber Plan / Payer (Ef fective 2021-Present) Name:Bulmaro Pablo Relation to Subscriber:Self Name:Bulmaro Pablo Payer ID:[id number] (NAIC) Group ID:Not on file Type:MEDICAID RISK OTHER Address: ATTN: CLAIMS DEPT [address] [facility] [place] [phone] En [place] [address] [facility] Advance Directives For more information, please contact: [phone] * Full Code (Latest Code Status on File) Date Activated Date Inactivated Comments 04/17/2022 11:55 AM 04/19/2022 8:00 PM Care Teams Counter Manager Relationship Specialty Start Date End Date Wiliam Waggoner MD [address] [facility] DEPT [place] [address] PCP - General Family Medicine 05/04/22 Geni Dickinson MD [address] [facility] GYNECOLOGIC ONCOLOGY, [address] [address] Consulting Physician Gynecologic Oncology 05/04/22
--- OUTSIDE RECORDS SUMMARY | 2025-06-09 11:16 | XMS_ITS | Clinical Summary ---
Author Organization [facility] Address [address] [facility] [place] [address] Care Team Providers Care Network Manager Name Role Phone Aaron Waggoneraveskendall Nguyen Primary Care Provider Unavailab le Source Comments [facility],non-owned Affiliates and Associated Physician Practices is amultiple site organization consisting of ambulatory clinics and hospital sitesin [place], [place], [place] and [place]. This disclosure is being madepursuant to the Care Everywhere program and may not contain all information available regarding this patient. 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
--- OUTSIDE RECORDS SUMMARY | 2025-06-09 11:16 | XMS_ITS | Data Portability ---
Author Organization [place] [facility] [place], Main Office Address [address] [place] [address] Care Team Providers Care Fire Hazard Inspector Name Role Phone WILIAM WAGGONER Primary Care [...] understanding it. Cont f/u with Gyne at [facility] as per schedule. Offered to refer to Psych/counsellor; but pt declined. HM: WWE - 03/27, normal as per pt. Cont f/u with Gyne as per schedule. Mammo - Never. No FH of breast CA. Flu - Pt declined. Tdap, Gardasil - At [facility]. F/u in 1-2 weeks. Annual labs in 11/27. [email or web address] Not available 11/04/2022 18:20:20 11/17/2022 11/17/2022 38 [...] understanding it. Cont f/u with Gyne at [facility] as per schedule. Offered to refer to Psych/counsellor; but pt declined. HM: WWE - 03/27, normal as per pt. Cont f/u with Gyne as per schedule. Mammo - Never. No FH of breast CA. Flu - Pt declined. Tdap, Gardasil - At [facility]. F/u in 1 month. CBC before next visit. Lipids in 02/26. Annual labs in 11/27. [email or web address] Not available 11/17/2022 17:51:54 03/16/2023 03/16/2023 39 [...] understanding it. Cont f/u with Gyne at [facility] as per schedule. Offered to refer to Psych/counsellor; but pt declined. HM: WWE - 03/27, normal as per pt. Cont f/u with Gyne as per schedule. Mammo - Never. No FH of breast CA. Flu - Pt declined. Tdap, Gardasil - At [facility]. F/u in 3 months. Lipids in 06/28. Annual labs in 11/27. [email or web address] Not available 03/16/2023 15:08:54 04/05/2024 04/05/2024 40 [...] to f/u with her Breast surgeon at [facility] for any Pre-op labs/testing. Mammogram order given [...] understanding it. Cont f/u with Gyne at [facility] as per schedule. Offered to refer to Psych/counsellor; but pt declined. HM: WWE - 03/27, normal as per pt. Cont f/u with Gyne as per schedule. Mammo - Never. No FH of breast CA. Flu - Pt declined. Tdap, Gardasil - At [facility]. F/u in few weeks for Annual exam. Annual labs in 11/27. Not available 04/05/2024 16:13:13 Plan of Treatment Reminders Order Date Submit Date Provider Last Modified By Organization Details Last Modified Time Details Appointments None recorded. Lab lipid panel, serum 2022 023 [email or web address] [facility] (Lab), [address] [place], [address], 17:46:36 [facility] [address] [place], [address], 3 14:15:33 lipid panel, serum [address] (Lab), [address] [place], [address], 3 10:23:35 HbA1c (hemoglobin A1c), blood [address] (Lab), [address] [place], [address], 3 09:43:50 vitamin D, 25-hydroxy, total, serum [address] (Lab), [address] [place], [address], 3 09:44:46 CBC w/ auto diff 2022 023 [facility] (Lab), [address] [place], [address], 3 13:29:08 CMP, serum or plasma 2022 023 [facility] (Lab), [address] [place], [address], 3 13:34:04 lipid panel, serum 2022 023 [facility] (Lab), [address] [place], [address], 3 13:34:06 TSH, serum, reflex free T4 [address] (Lab), [address] [place], [address], 3 09:43:18 urinalysis complete, reflex culture [address] (Lab), [address] [place], [address], 3 09:43:33 vitamin B12 + folate, serum or blood 2022 023 [email or web address] [facility] (Lab), [address] [place], [address], 3 15:09:40 Referral None recorded. Procedures None recorded. Surgeries None recorded. Imaging XR, lumbosacral spine, 4 or more view [address] ([facility]), [address] [place], [address], 5 16:48:15 XR, elbow, 3 or more view [address] ([facility]), [address] [place], [address], 5 10:41:00 MAMMO, screening, bilateral - *Please call pt to schedule* 2023 024 [email or web address] [facility] ([facility]), [address] [place], [address], 4 12:04:00 Medication Orders cyclobenzap rine 10 mg tablet 2024 025 [facility] #46088, [address] , [place], [place], [id number], 5 17:16:28 Solu-Medrol (PF) 125 mg/2 mL solution for injection 2024 025 [email or web address] Not available 5 17:35:08 Medrol (David) 4 mg tablets in a dose pack 2024 025 [facility] #73284, [address], [place], [place], [id number], 5 17:16:26 phentermine 37.5 mg tablet 2023 024 [email or web address] [facility] #31655, [address] [place], [place], [id number], 5 16:52:50 atorvastati n 10 mg tablet 2023 024 [facility] #65151, [address] [place], [place], [id number], 4 16:02:43 Plenity (Welcome Kit) 0.75 gram capsule 2022 023 [facility], [address] [place] [address], [place] [address], [place], [address], 4 15:55:48 doxycycline hyclate 100 mg capsule 2022 023 [email or web address] [facility] #05297, [address] [place], [place], [id number], 4 15:55:35 atorvastati n 10 mg tablet 2022 023 SALMA [facility] #42498, [address] [place], [place], [id number], 3 14:57:55 ciprofloxac in 500 mg tablet 2022 023 [email or web address] [facility] #03492, [address] [place], [place], [id number], 3 14:47:41 phentermine 15 mg capsule [email or web address] [place] [address] [facility] #02471, [address] [place], [place], [id number], 15:01:14 atorvastati n 10 mg tablet 2022 023 SAL[facility] #78009, [address] [place], [place], [id number], 17:23:59 Patient TargetsNo targets recorded. Patient Instructions Encounter Date Encounter Id Patient Instructions Last Modified By Organization Details Last Modified Time 12/27/2024 [id number] When You Want to Lose Weight: Care Instructions [email or web address] Not available 12/27/2024 17:24:24 Reason for Referral None Reported. Results Created Date Observation Date Name Description Value Unit Range Abnormal Flag Note LastModifiedBy Organization Detail LastModifiedTime 11/05/1911/05/2022 CBC/C OMPLE TE BLD COUNT W/DIF F white blood cells 12.5 x10'3 /uL 4.2-10 .8 high Not Available [facility] (Lab) [address] [place], [address], 11/05/2022 13:29:08 11/05/19 23 11/05/2022 CBC/C OMPLE TE BLD COUNT W/DIF F red blood cells 4.68 x10'6 /uL 3.80-5 .20 Not Available [facility] (Lab) [address] [place], [address], 11/05/2022 13:29:08 11/05/1911/05/2022 CBC/C OMPLE TE BLD COUNT W/DIF F hemoglobin 14.9 g/dL 12.0-1 5.6 Not Available [facility] (Lab) [address] [place], [address], 11/05/2022 13:29:08 11/05/1911/05/2022 CBC/C OMPLE TE BLD COUNT W/DIF F hematocrit 44.9 % 35.7-4 5.7 Not Available [facility] (Lab) [address] [place], [address], 11/05/2022 13:29:08 11/05/19 23 11/05/2022 CBC/C OMPLE TE BLD COUNT W/DIF F mean red cell volume 95.9 fL 82.0-9 9.0 Not Available [facility] (Lab) [address] [place], [address], 11/05/2022 13:29:08 11/05/19 23 11/05/2022 CBC/C OMPLE TE BLD COUNT W/DIF F mean red cell hemoglobin 31.8 pg 27.0-3 3.0 Not Available [facility] (Lab) [address] [place], [address], 11/05/2022 13:29:08 11/05/19 23 11/05/2022 CBC/C OMPLE TE BLD COUNT W/DIF F mean RBC HGB concentratio n 33.2 g/dL 31.0-3 6.0 Not Available [facility] (Lab) [address] [place], [address], 11/05/2022 13:29:08 11/05/19 23 11/05/2022 CBC/C OMPLE TE BLD COUNT W/DIF F red cell distribution width 12.7 % 11.8-1 5.5 Not Available [facility] (Lab) [address] [place], [address], 11/05/2022 13:29:08 11/05/19 23 11/05/2022 CBC/C OMPLE TE BLD COUNT W/DIF F platelets 415 x10'3 /uL 150-40 0 high Not Available [facility] (Lab) [address] [place], [address], 11/05/2022 13:29:08 11/05/19 23 11/05/2022 CBC/C OMPLE TE BLD COUNT W/DIF F mean platelet volume 9.9 fL 9.0-12 .4 Not Available [facility] (Lab) [address] [place], [address], 11/05/2022 13:29:08 11/05/1911/05/2022 CBC/C OMPLE TE BLD COUNT W/DIF F neutrophils 62.0 % 39.0-7 2.0 Not Available [facility] (Lab) [address] [place], [address], 11/05/2022 13:29:08 11/05/19 23 11/05/2022 CBC/C OMPLE TE BLD COUNT W/DIF F lymphocytes 27.0 % 16.0-4 7.0 Not Available [facility] (Lab) [address] [place], [address], 11/05/2022 13:29:08 11/05/19 23 11/05/2022 CBC/C OMPLE TE BLD COUNT W/DIF F monocytes 6.5 % 5.0-12 .0 Not Available [facility] (Lab) [address] [place], [address], 11/05/2022 13:29:08 11/05/1911/05/2022 CBC/C OMPLE TE BLD COUNT W/DIF F eosinophils 3.7 % 1.0-7. 0 Not Available [facility] (Lab) [address] [place], [address], 11/05/2022 13:29:08 11/05/19 23 11/05/2022 CBC/C OMPLE TE BLD COUNT W/DIF F basophils 0.4 % 0.0-2. 0 Not Available [facility] (Lab) [address] [place], [address], 11/05/2022 13:29:08 11/05/19 23 11/05/2022 CBC/C OMPLE TE BLD COUNT W/DIF F immature granulocytes 0.4 % 0.00-0 .50 Not Available [facility] (Lab) [address] [place], [address], 11/05/2022 13:29:08 11/05/19 23 11/05/2022 CBC/C OMPLE TE BLD COUNT W/DIF F neutrophils, absolute count 7.77 x10'3 /uL 1.5-8. 0 Not Available [facility] (Lab) [address] [place], [address], 11/05/2022 13:29:08 11/05/19 23 11/05/2022 CBC/C OMPLE TE BLD COUNT W/DIF F lymphocytes, absolute count 3.38 x10'3 /uL 1.07-3 .43 Not Available [facility] (Lab) [address] [place], [address], 11/05/2022 13:29:08 11/05/19 23 11/05/2022 CBC/C OMPLE TE BLD COUNT W/DIF F monocytes, absolute count 0.81 x10'3 /uL 0.29-0 .99 Not Available [facility] (Lab) [address] [place], [address], 11/05/2022 13:29:08 11/05/19 23 11/05/2022 CBC/C OMPLE TE BLD COUNT W/DIF F eosinophils, absolute count 0.46 x10'3 /uL 0.02-0 .53 Not Available [facility] (Lab) [address] [place], [address], 11/05/2022 13:29:08 11/05/19 23 11/05/2022 CBC/C OMPLE TE BLD COUNT W/DIF F basophils, absolute count 0.05 x10'3 /uL 0.01-0 .08 Not Available [facility] (Lab) [address] [place], [address], 11/05/2022 13:29:08 11/05/19 23 11/05/2022 CBC/C OMPLE TE BLD COUNT W/DIF F immature granulocytes ,absolute 0.05 x10'3 /uL 0.00-0 .05 Not Available [facility] (Lab) [address] [place], [address], 11/05/2022 13:29:08 11/05/19 23 11/05/2022 CBC/C OMPLE TE BLD COUNT W/DIF F nucleated red blood cells 0.0 % -0 Not Available [facility] (Lab) [address] [place], [address], 11/05/2022 13:29:08 11/05/19 23 11/05/2022 CBC/C OMPLE TE BLD COUNT W/DIF F NRBC# 0.00 x10'3 /uL Not Available [facility] (Lab) [address] [place], [address], 11/05/2022 13:29:08 11/05/19 23 11/05/2022 COMPR EHENS GERRY METAB OLIC PANEL sodium 139 mmol/ L 137-14 5 Not Available [facility] (Lab) [address] [place], [address], 11/05/2022 13:34:04 11/05/19 23 11/05/2022 COMPR EHENS GERRY METAB OLIC PANEL potassium 4.5 mmol/ L 3.5-5. 1 Not Available [facility] (Lab) [address] [place], [address], 11/05/2022 13:34:04 11/05/19 23 11/05/2022 COMPR EHENS GERRY METAB OLIC PANEL chloride 104 mmol/ L 98-107 Not Available [facility] (Lab) [address] [place], [address], 11/05/2022 13:34:04 11/05/19 23 11/05/2022 COMPR EHENS GERRY METAB OLIC PANEL carbon dioxide 28 mmol/ L 22-30 Not Available [facility] (Lab) [address] [place], [address], 11/05/2022 13:34:04 11/05/19 23 11/05/2022 COMPR EHENS GERRY METAB OLIC PANEL anion gap 11.5 mmol/ L 14-22 low Not Available [facility] (Lab) [address] [place], [address], 11/05/2022 13:34:04 11/05/19 23 11/05/2022 COMPR EHENS GERRY METAB OLIC PANEL glucose 94 mg/dL 70-99 Not Available [facility] (Lab) [address] [place], [address], 11/05/2022 13:34:04 11/05/19 23 11/05/2022 COMPR EHENS GERRY METAB OLIC PANEL BUN 18 mg/dL 8-19 Not Available [facility] (Lab) [address] [place], [address], 11/05/2022 13:34:04 11/05/19 23 11/05/2022 COMPR EHENS GERRY METAB OLIC PANEL creatinine 0.94 mg/dL 0.66-1 .25 Not Available [facility] (Lab) [address] [place], [address], 11/05/2022 13:34:04 11/05/19 23 11/05/2022 COMPR EHENS GERRY METAB OLIC PANEL GFR >60 Refer ence Range : Morrice ge GFR Healt hy Adult : >60 [...] calcu lator is avail able on the [facility] websi te: https ://ww w.kid bing.o rg/pr ofess ional s/kdo qi/gf r_cal culat or Not Available [facility] (Lab) [address] [place], [address], 11/05/2022 13:34:04 11/05/19 23 11/05/2022 COMPR EHENS GERRY METAB OLIC PANEL alkaline phosphatase 104 U/L 38-126 Not Available [facility] (Lab) [address] [place], [address], 11/05/2022 13:34:04 11/05/19 23 11/05/2022 COMPR EHENS GERRY METAB OLIC PANEL alanine aminotransfe rase 25 U/L 0-35 Not Available [facility] (Lab) [address] [place], [address], 11/05/2022 13:34:04 11/05/19 23 11/05/2022 COMPR EHENS GERRY METAB OLIC PANEL aspartate aminotransfe rase 27 U/L 15-37 Not Available [facility] (Lab) [address] [place], [address], 11/05/2022 13:34:04 11/05/19 23 11/05/2022 COMPR EHENS GERRY METAB OLIC PANEL bilirubin, total 0.40 mg/dL 0.20-1 .30 Not Available [facility] (Lab) [address] [place], [address], 11/05/2022 13:34:04 11/05/19 23 11/05/2022 COMPR EHENS GERRY METAB OLIC PANEL calcium 9.9 mg/dL 8.4-10 .2 Not Available [facility] (Lab) [address] [place], [address], 11/05/2022 13:34:04 11/05/19 23 11/05/2022 COMPR EHENS GERRY METAB OLIC PANEL total protein 7.6 g/dL 6.3-8. 2 Not Available [facility] (Lab) [address] [place], [address], 11/05/2022 13:34:04 11/05/19 23 11/05/2022 COMPR EHENS GERRY METAB OLIC PANEL albumin 4.6 g/dL 3.4-5. 0 Not Available [facility] (Lab) [address] [place], [address], 11/05/2022 13:34:04 11/05/19 23 11/05/2022 COMPR EHENS GERRY METAB OLIC PANEL globulin 3.0 g/dL 2.6-4. 2 Not Available [facility] (Lab) [address] [place], [address], 11/05/2022 13:34:04 11/05/19 23 11/05/2022 COMPR EHENS GERRY METAB OLIC PANEL A/G ratio 1.5 ratio 1.0-2. 0 Not Available [facility] (Lab) [address] [place], [address], 11/05/2022 13:34:04 11/05/19 23 11/05/2022 LIPID PANEL cholesterol 216 mg/dL 140-19 9 high NIH ALIDA NSUS RECOM MENDA TION FOR SETH STERO L: ADULT CHILD LOW RISK: <200 <170 BORDE RLINE : <200- 239 ----- HIGH RISK: >240 >200 Not Available [facility] (Lab) [address] [place], [address], 11/05/2022 13:34:06 11/05/19 23 11/05/2022 LIPID PANEL triglyceride s 149 mg/dL 0-150 NIH ALIDA NSUS REPOR T RECOM MENDA TION FOR TRIGL YCERI BACILIO: ADULT CHILD LOW RISK: <150 ----- BODER LINE: 150-1 99 ----- HIGH RISK: >200 ----- Not Available [facility] (Lab) [address] [place], [address], 11/05/2022 13:34:06 11/05/19 23 11/05/2022 LIPID PANEL HDL cholesterol 81 mg/dL 40- Not Available [facility] (Lab) [address] [place], [address], 11/05/2022 13:34:06 11/05/19 23 11/05/2022 LIPID PANEL [...] WILL NOT BE REPOR IVETT. Not Available [facility] (Lab) [address] [place], [address], 11/05/2022 13:34:06 11/05/19 23 11/05/2022 VITAM IN D 25-HY DROXY vd25oh 33.3 NG/mL 30-100 Vitam in D Statu s: Defic ient: <20 ng/mL Insuf ficie nt: 20-29 ng/mL Suffi cient : 30-10 0 ng/mL Not Available [facility] (Lab) [address] [place], [address], 11/05/2022 13:36:01 11/05/19 23 11/05/2022 TSH W/REF DEVAN FT4 TSH with reflex free T4 1.450 uIU/m L 0.465- 4.680 Not Available [facility] (Lab) [address] [place], [address], 11/05/2022 13:46:48 11/05/1911/05/2022 URINA LYSIS COMPL ETE/I RIS W/RFX color LIGHT- YELLOW Not Available [facility] (Lab) [address] [place], [address], 11/05/2022 14:16:23 11/05/19 23 11/05/2022 URINA LYSIS COMPL ETE/I RIS W/RFX appear EXTRA TURBID abnormal Not Available [facility] (Lab) [address] [place], [address], 11/05/2022 14:16:23 11/05/19 23 11/05/2022 URINA LYSIS COMPL ETE/I RIS W/RFX specific gravity 1.018 1.001- 1.030 Not Available [facility] (Lab) [address] [place], [address], 11/05/2022 14:16:23 11/05/19 23 11/05/2022 URINA LYSIS COMPL ETE/I RIS W/RFX pH 6.5 pH_un its 5.0-9. 0 Not Available [facility] (Lab) [address] [place], [address], 11/05/2022 14:16:23 11/05/19 23 11/05/2022 URINA LYSIS COMPL ETE/I RIS W/RFX leukocytes 25 corinne/u L negati ve- abnormal Not Available [facility] (Lab) [address] [place], [address], 11/05/2022 14:16:23 11/05/19 23 11/05/2022 URINA LYSIS COMPL ETE/I RIS W/RFX nitrite 1+ negati ve- abnormal Not Available [facility] (Lab) [address] [place], [address], 11/05/2022 14:16:23 11/05/19 23 11/05/2022 URINA LYSIS COMPL ETE/I RIS W/RFX protein NEGATI VE mg/dL negati ve- Not Available [facility] (Lab) [address] [place], [address], 11/05/2022 14:16:23 11/05/19 23 11/05/2022 URINA LYSIS COMPL ETE/I RIS W/RFX glucose NORMAL mg/dL normal - Not Available [facility] (Lab) [address] [place], [address], 11/05/2022 14:16:23 11/05/19 23 11/05/2022 URINA LYSIS COMPL ETE/I RIS W/RFX ketones NEGATI VE mg/dL negati ve- Not Available [facility] (Lab) [address] [place], [address], 11/05/2022 14:16:23 11/05/19 23 11/05/2022 URINA LYSIS COMPL ETE/I RIS W/RFX urobilinogen NORMAL mg/dL normal - Not Available [facility] (Lab) [address] [place], [address], 11/05/2022 14:16:23 11/05/19 23 11/05/2022 URINA LYSIS COMPL ETE/I RIS W/RFX bilirubin NEGATI VE mg/dL negati ve- Not Available [facility] (Lab) [address] [place], [address], 11/05/2022 14:16:23 11/05/19 23 11/05/2022 URINA LYSIS COMPL ETE/I RIS W/RFX blood 0.06 mg/dL negati ve- abnormal Not Available [facility] (Lab) [address] [place], [address], 11/05/2022 14:16:23 11/05/19 23 11/05/2022 URINA LYSIS COMPL ETE/I RIS W/RFX white blood cells 0-8 /i??h pfi?? 0-8 Not Available [facility] (Lab) [address] [place], [address], 11/05/2022 14:16:23 11/05/19 23 11/05/2022 URINA LYSIS COMPL ETE/I RIS W/RFX red blood cells 11-20 /i??h pfi?? 0-4 abnormal Not Available [facility] (Lab) [address] [place], [address], 11/05/2022 14:16:23 11/05/19 23 11/05/2022 URINA LYSIS COMPL ETE/I RIS W/RFX bacteria OCCASI ONAL abnormal Not Available [facility] (Lab) [address] [place], [address], 11/05/2022 14:16:23 11/05/19 23 11/05/2022 URINA LYSIS COMPL ETE/I RIS W/RFX mucous OCCASI ONAL /i??l pfi?? abnormal Not Available [facility] (Lab) [address] [place], [address], 11/05/2022 14:16:23 11/05/19 23 11/05/2022 URINA LYSIS COMPL ETE/I RIS W/RFX squamous epithelial PACKED FIELD /i??l pfi?? abnormal Not Available [facility] (Lab) [address] [place], [address], 11/05/2022 14:16:23 11/05/19 23 11/05/2022 URINA LYSIS COMPL ETE/I RIS W/RFX calcium oxalate crystal OCCASI ONAL /i??h pfi?? none seen- abnormal Not Available [facility] (Lab) [address] [place], [address], 11/05/2022 14:16:23 11/05/19 23 11/05/2022 VITAM IN B12 (MP LISA ) vb12 666 pg/mL 239-93 1 Not Available [facility] (Lab) [address] [place], [address], 11/05/2022 14:27:09 11/05/19 23 11/05/2022 FOLAT E, SERUM /PLAS MA folate 7.68 NG/mL 2.76-2 0.0 Not Available [facility] (Lab) [address] [place], [address], 11/05/2022 14:27:35 11/05/19 23 11/05/2022 HEMOG LOBIN A1C HA1C 4.8 % 4.0-6. 0 Diabe pasha Scree soham Crite danny: <5.7% Consi stent with absen ce of diabe pasha 5.7-6 .4% Consi stent with incre ased risk for diabe pasha (pred iabet es) >OR=6 .5% Consi stent with diabe pasha REFER ENCE: Diabe pasha Care 2016, 39(Mccauley ppl.1 ):s13 -s22 Not Available [facility] (Lab) [address] [place], [address], 11/05/2022 22:25:45 11/05/19 23 11/04/2022 CULTU RE URINE urc ===== ===== ===== ===== ===== ===== ===== ===== ===== ===== ===== ===== ===== ===== ===== ===== ===== ===== ===== ===== ===== ===== ===== ===== CULTU RE NO.: [id number] 7 Exam Statu s: Final Exam Type: [...] furan toin <=16 S 021M Not Available [facility] (Lab) [address] [place] [address], [address], 11/07/2022 08:13:02 03/12/20 23 03/12/2023 CBC W/O DIFFE RENTI AL white blood cells 9.8 x10'3 /uL 4.2-10 .8 Not Available [facility] (Lab) [address] [place], [address], 03/12/2023 14:15:33 03/12/20 23 03/12/2023 CBC W/O DIFFE RENTI AL red blood cells 4.42 x10'6 /uL 3.80-5 .20 Not Available [facility] (Lab) [address] [place], [address], 03/12/2023 14:15:33 03/12/20 23 03/12/2023 CBC W/O DIFFE RENTI AL hemoglobin 14.1 g/dL 12.0-1 5.6 Not Available [facility] (Lab) [address] [place], [address], 03/12/2023 14:15:33 03/12/20 23 03/12/2023 CBC W/O DIFFE RENTI AL hematocrit 42.6 % 35.7-4 5.7 Not Available [facility] (Lab) [address] [place], [address], 03/12/2023 14:15:33 03/12/20 23 03/12/2023 CBC W/O DIFFE RENTI AL mean red cell volume 96.4 fL 82.0-9 9.0 Not Available [facility] (Lab) [address] [place], [address], 03/12/2023 14:15:33 03/12/20 23 03/12/2023 CBC W/O DIFFE RENTI AL mean red cell hemoglobin 31.9 pg 27.0-3 3.0 Not Available [facility] (Lab) [address] [place], [address], 03/12/2023 14:15:33 03/12/20 23 03/12/2023 CBC W/O DIFFE RENTI AL mean RBC HGB concentratio n 33.1 g/dL 31.0-3 6.0 Not Available [facility] (Lab) [address] [place], [address], 03/12/2023 14:15:33 03/12/20 23 03/12/2023 CBC W/O DIFFE RENTI AL red cell distribution width 12.3 % 11.8-1 5.5 Not Available [facility] (Lab) [address] [place], [address], 03/12/2023 14:15:33 03/12/20 23 03/12/2023 CBC W/O DIFFE RENTI AL platelets 315 x10'3 /uL 150-40 0 Not Available [facility] (Lab) [address] [place], [address], 03/12/2023 14:15:33 03/12/20 23 03/12/2023 CBC W/O DIFFE RENTI AL mean platelet volume 9.9 fL 9.0-12 .4 Not Available [facility] (Lab) [address] [place], [address], 03/12/2023 14:15:33 03/12/20 23 03/12/2023 LIPID PANEL cholesterol 166 mg/dL 140-19 9 NIH ALIDA NSUS RECOM MENDA TION FOR SETH STERO L: ADULT CHILD LOW RISK: <200 <170 BORDE RLINE : <200- 239 ----- HIGH RISK: >240 >200 Not Available [facility] (Lab) [address] [place], [address], 03/12/2023 14:34:18 03/12/20 23 03/12/2023 LIPID PANEL triglyceride s 171 mg/dL 0-150 high NIH ALIDA NSUS REPOR T RECOM MENDA TION FOR TRIGL YCERI BACILIO: ADULT CHILD LOW RISK: <150 ----- BODER LINE: 150-1 99 ----- HIGH RISK: >200 ----- Not Available [facility] (Lab) [address] [place], [address], 03/12/2023 14:34:18 03/12/20 23 03/12/2023 LIPID PANEL HDL cholesterol 79 mg/dL 40- Not Available [facility] (Lab) [address] [place], [address], 03/12/2023 14:34:18 03/12/20 23 03/12/2023 LIPID PANEL [...] WILL NOT BE REPOR IVETT. Not Available [facility] (Lab) [address] [place], [address], 03/12/2023 14:34:18 05/10/20 24 05/09/2024 scree soham breas t jazmin, bilat [facility] [address] [place] [address] Patien t Name: BULMARO NARVAEZ Access ion #: [id number] Sex: F : 1984 6 Locati [...] fuad ectura l Page 1 of 2 [facility] [place] Steven gomez Name: BULMARO NARVAEZ Access ion #: [id number] Sex: F : 1984 6 Exam [...] ly to the [facility] er. A negati ve mammog hallie [...] (CT) (CT) Page 2 of 2 [email or web address] [facility] (Imaging) [address] [place], [address], 05/10/2024 15:33:24 06/22/20 24 06/22/2024 CT, abdom en + pelvi s, w/ contr ast No observ ation record ed. [email or web address] [facility] [address] [place], [address], 06/26/2024 15:29:13 Result Notes None recorded. Problems Name Problem SNOMED Code Status Onset Date Resolution Date Notes Provider Name and Address Organization Details Recorded Time Seroma following procedure 8469718299932 05 Active Wiliam Waggoner MD [address] [facility], [address] [place] [address], [place], [address] , [employer] 5 17:25:41 Anxiety disorder 971291051 Active 2020 Not Available [facility] 3 10:45:38 Overweight 381968320 Active 2020 Not Available [facility] 3 10:45:38 Depressive disorder 79635736 Active 2020 Not Available [facility] 3 10:45:38 History of malignant neoplasm of ovary 310437188 Active 2022 Not Available [facility] 3 10:45:38 Ex-smoker 2496814 Active 2022 Not Available [facility] 3 10:45:38 Vitamin D deficiency 86926111 Active 2022 Wiliam Waggoner MD [address] [address], [place], [address] , [facility] [employer] [employer] 3 18:08:39 Fatigue 77896477 Active 2022 Wiliam Waggoner MD [address] [place] [address], [place], [address] , [place] [facility] 3 18:12:05 Leukocytos is 446491321 Active 2022 Wiliam Waggoner MD [address], [place], [address] , [place] [facility] 3 17:20:17 Hyperlipid emia 57334447 Active 2022 Wiliam Waggoner MD [address], [place], [address] , [place] [facility] 3 17:20:22 Urinary tract infectious disease 47551791 Active 2022 Wiliam Waggoner MD [address], [place], [address] , [place] [facility] 3 17:21:10 Thrombocyt osis 4017008 Active 2022 Wiliam Waggoner MD [address], [place], [place], [address] , [place] [facility] 3 17:23:31 Hypertrigl yceridemia 610614893 Active 2022 Wiliam Waggoner MD [address], [place], [address] , [place] [facility] 3 14:56:00 Acne 09851762 Active 2022 Wiliam Waggoner MD [address], [place], [address] , [place] [facility] 3 15:01:36 Chronic low back pain 246166093 Active 2024 Wiliam Waggoner MD [address], [place], [address] , [place] [facility] 5 17:12:00 Left side sciatica 9374359555476 04 Active 2024 Wiliam Waggoner MD [address], [place], [address] , [facility] [employer] [facility] [employer] [facility] 17:12:07 Pain of right elbow joint 5100089581072 9109 Active 2024 Wiliam Waggoner MD [address] [facility], [address] [place] [address], [place], [address] , [facility] [employer] [facility] 17:12:59 Tendinitis of right elbow 4591164426194 9108 Active 2024 Wiliam Waggoner MD [address] [facility], [place] [place] [address], [place], [address] , [facility] [employer] [facility] [employer] [facility] 17:23:04 Problem Notes None recorded. Procedures Surgical History Date Name Laterality Status Provider Name and Address Organization Details Recorded Time 022 operation on ovary completed Not Available [facility] 11/04/2022 10:42:14 other completed Not Available [facility] 11/04/2022 10:42:14 rhinoseptoplasty completed Not Available [facility] 11/04/2022 10:42:14 Imaging Results None recorded. Procedure Notes None recorded. Medical Equipment None Reported. Allergies Allergen ID Allergen Name Allergen Category Reaction Reaction Severity Criticality Documentation Date Start Date Code Code System Note Provider Name and Address Organization Details Recorded Time 75745 amoxicill in medicatio n Not available Not available Not available 11/04/2022 723 RxNorm Other react ions and sever ities : 'Adve rse react ion to subst ance' . Wiliam Waggoner MD [address] [facility], [address] [place] [address], [place], [address], [facility] [employer] [facility] 17:25:15 Medications Name Sig Start Date Stop [...] Updated DateTime 3 165.1 cm 28 kg/m2 04508.5 2 g 97.8 [degF] 74 /min 99 % 99 % 16 /min 118/74 mm[Hg] Arabella Bliss RN [place] [facility] [employer] 3 17:54:46 Date Recorded Body height Body mass index (BMI) Body weight Body temperature Heart rate Oxygen saturation Oxygen saturation in Arterial blood by Pulse oximetry Respiratory rate Systolic And Diastolic Provider Name and Address Organization Details Last Updated DateTime 3 165.1 cm 28.5 kg/m2 44865.3 g 97.8 [degF] 93 /min 98 % 98 % 16 /min 110/76 mm[Hg] Arabella Bliss RN [facility] [employer] [facility] 3 17:12:38 Date Recorded Body height Body mass index (BMI) Body weight Body temperature Oxygen saturation Oxygen saturation in Arterial blood by Pulse oximetry Heart rate Systolic And Diastolic Provider Name and Address Organization Details Last Updated DateTime 5 165.1 cm 27.7 kg/m2 14951.7 3 g 97.4 [degF] 97 % 97 % 87 /min 110/68 mm[Hg] Deepti Adler RN [facility] [employer] 5 17:10:16 Date Recorded Body height Body mass index (BMI) Body weight Body temperature Heart rate Respiratory rate Oxygen saturation Oxygen saturation in Arterial blood by Pulse oximetry Pain severity - 0-10 verbal numeric rating [Score] - Reported Systolic And Diastolic Provider Name and Address Organization Details Last Updated DateTime 3 165.1 cm 29.7 kg/m2 10049.5 4 g 98.3 [degF] 96 /min 20 /min 97 % 97 % 0 130/80 mm[Hg] Lisandro Lobo [facility] [employer] 3 14:50:25 Date Recorded Heart rate Provider Name an d Address Organization Details Last Updated DateTime 04/05/2024 90 /min Breanne Adan [address] [facility], [address] [place] [address], [place], [address], [facility] [employer] [facility] 04/05/2024 15:49:57 Date Recorded Body height Body mass index (BMI) Body weight Body temperature Respiratory rate Oxygen saturation Oxygen saturation in Arterial blood by Pulse oximetry Systolic And Diastolic Provider Name and Address Organization Details Last Updated DateTime 4 165.1 cm 27.6 kg/m2 01878.6 8 g 98.1 [degF] 20 /min 99 % 99 % 132/78 mm[Hg] Lisandro Lobo [employer] [facility] 4 15:47:28 Social History Question Answer Notes LastModified by [employer] Details LastModified Time Tobacco Smoking Status Former Smoker Wiliam Waggoner MD [address], [facility] [address], [place], [address], [employer] [facility] 11/04/2022 18:10:16 In The 14 Days Before Symptom Onset, Have You Had Close Contact With A Laboratory-confirm ed COVID-19 While That Case Was Ill? No [id number] Information not available 11/04/2022 In The 14 Days Before Symptom Onset, Have You Had Close Contact With A Person Who Is Under Investigation For COVID-19 While That Person Was Ill? No [id number] Information not available 11/04/2022 What Type Of Diet Are You Following? REGULAR [email or web address] Information n ot available 11/04/2022 How Much Tobacco Do You Smoke? No [email or web address] Information not available 11/04/2022 Do You Have Any Dietary Restrictions? No Information not available 11/04/2022 Sex: Unknown Functional Status Question Answer Note LastModified by [employer] Details LastModified Time What is your exercise level? Occasional [email or web address] Information not available 11/04/2022 Mental Status None recorded. Family History Relationship Description Onset Age of this Age Resolved Age Notes LastModified by Organization Details LastModified Time Unspecified Relation Hypertensive disorder [id number] Not available 11/04/2022 10:42:18 Unspecified Relation Diabetes mellitus [id number].843 [id number] Not available 11/04/2022 10:42:18 Unspecified Relation Non-Hodgkin' s lymphoma (clinical) MIGRATION.592 [id number] Not available 11/04/2022 10:42:18 Unspecified Relation Leukemia MIGRATION.363 [id number] Not available 11/04/2022 10:42:18 Unspecified Relation Hypertensive disorder MIGRATION.706 [id number] Not available 11/04/2022 13:29:56 Unspecified Relation Diabetes mellitus MIGRATION.719 [id number] Not available 11/04/2022 13:29:56 Unspecified Relation Non-Hodgkin' s lymphoma (clinical) MIGRATION.007 [id number] Not available 11/04/2022 13:29:57 Unspecified Relation Leukemia MIGRATION.259 [id number] Not available 11/04/2022 13:29:57 Medical History Condition [...] HAVE YOU BEEN HOSPITALIZED OR SEEN IN [facility] IN THE PAST YEAR ? N ATHEROSCLEROSIS [...] ICD10 Code Diagnosis IMO Codes Diagnosis Note [id number] Wiliam Waggoner MD [address] [address] 12/19/2020 00:00:00 12/19/2020 18:16:12 [id number] Wiliam Waggoner MD [address] [address] 09/29/2022 00:00:00 09/29/2022 16:55:10 [id number] Wiliam Waggoner MD [address] [address] 11/04/2022 17:38:54 11/04/2022 18:27:53 Adult health examination 293749480 Z00.00 Anxiety disorder 1888334 06 F41.9 Overweight 844907991 E66 .3 Ex-smoker 5753813 Z87.89 1 Vitamin D deficiency 347 46350 E55.9 Fatigue 83831288 R53.83 [id number] Wiliam Waggoner MD [address] [address] 11/17/2022 17:04:22 11/17/2022 18:01:24 Leukocytosis 529880981 D72.829 Hyperlipidemia 06214480 E78.5 Urinary tr act infectious disease 68752483 N39.0 Thrombocytosis 2362381 D 75.839 Overweight 895139704 E66 .3 [id number] Wiliam Waggoner MD [address] [address] 03/16/2023 14:43:20 03/16/2023 15:11:56 Leukocytosis 061329557 D72.829 resolved Hyperlipidemia 87518780 E78.5 Thrombocytosis 9646200 D 75.839 resolved Overweight 665995561 E66 .3 Hypertriglyceridemia 302 267558 E78.2 Acne 49471416 L70.9 History of malignant neoplasm of ovary 655410339 Z85.43 [id number] Wiliam Waggoner MD [facility] [address] [place] [address] 04/05/2024 15:40:21 04/05/2024 16:13:30 Leukocytosis 008259235 D72.829 history Hyperlipidemia 01833411 E78.5 Thrombocytosis 6588222 D 75.839 history Overweight 369467048 E66 .3 Screening mammography 24 561150 Z12.31 Pre-surger y evaluation 293052904 Z01.059 [id number] Wiliam Waggoner MD [facility] [address] [place] [address] 12/27/2024 16:50:23 12/27/2024 17:29:10 Chronic low back pain 876937137 M54.50 Pt declined for HCG. Left side sciatica 70547 34443 79235 M54.32 Pain of ri ght elbow joint 0407431734 2698754 M25.521 RICE explained. Tendinitis of right elbow 3330053690 5335092 M67.823 Overweight 653606646 E66 .3 Hyperlipidemia 89176583 E78.5 Hypertriglyceridemia 302 259078 E78.2 Health Concerns Section Related Observation LastModified by Organization Detai ls LastModified Time None Recorded Concern Status LastModified by Organization Details LastModified Time None Recorded Advance Directives Directive None Recorded Payers Insurance Date Sequence Insurance Name Policy Number Policy Aldridge Covered Member ID Aldridge Member ID Guarantor Name 12/27/2024 1 [facility] - DOS ON OR AFTER 21 (MEDICAID REPLACEMENT - HMO) Bulmaro Pablo [id number] Bulmaro Pablo Notes Date Note Type Note [...] lbs). So pt was seeing Gyne at [facility] and she got laparotomy done to remove [...] Waggoner MD [address], [address], [place], [address], [facility] [employer] 11/04/2022 18:21:15 11/17/2022 text/html Pt is here for f/u on her annual labs. Pt wants to try med for her wt concerns.Pt was seen in ED in 03/27 due to abdominal pain and was diagnosed with a huge mass over her Rt ovary (15 lbs). So pt was seeing Gyne at [facility] and she got laparotomy done to remove [...] Waggoner MD [address], [address], [place], [address], [employer] 11/17/2022 17:52:11 03/16/2023 text/html ACV + FUV: [...] lbs). So pt was seeing Gyne at [facility] and she got laparotomy done to remove [...] Waggoner MD [address], [address], [place], [address], [employer] 03/16/2023 15:09:49 04/05/2024 text/html ACV: Pt is f/u with breast surgeon in [place], [place] and will be going for b/l [...] lbs). So pt was seeing Gyne at [facility] and she got laparotomy done to remove it and it came back benign. No chemo/radiation needed. Pt is f/u with them every 6 months now. No more concerns with it.Denies any mood problem/concerns. Pt has stopped all her meds and is doing overall well. Denies any mood swings/SI/HI.Pt has quitted smoking since 04/27 and is doing well. Wiliam Waggoner MD [address], [address], [place], [address], [employer] 04/05/2024 16:13:16 12/27/2024 text/html ACV: C/o lower back area pain with Lt LE radiation for last 4 months. Denies any recent fall/trauma/heavy lifting. Denies any urinary symptoms. C/o Rt lateral elbow area pain for last 2.5 weeks. Denies any chance of . Denies any workman's comp. Last visit in 03/29. Wiliam Waggoner MD [address], [address], [place], [address], [employer] 12/27/2024 17:26:12 OBGyn Episode No OBEpisode recorded.
--- NOTE | 2025-06-09 11:17 | ED_ITS ---
HPI - Female Genitourinary General Chief complaint: Urogenital-Female Stated complaint: std testing Time Seen by Provider: 06/09/25 11:15 Source: patient Mode of arrival: ambulatory Limitations: no limitations History of Present Illness HPI Narrative: Patient is a 40-year-old female who presents for concern of STI. Patient is having vaginal irritation but states it does not feel like previous yeast infection. Patient is currently on menstrual cycle so it is hard to determine if there is discharge or odor. Denies any burning with urination, urgency or frequency. Denies any fever, chills, nausea, vomiting, diarrhea, low back pain. MD elicited complaint: dysuria Related Data Home Medications ?Medication ?Instructions ?Recorded ?Confirmed ?Last Taken ?Type No Home Medications 06/09/25 06/09/25 U nknown History Allergies Allergy/AdvReac Type Severity Reaction Status Date / Time amoxicillin Allergy Mild Hives Verified 06/09/25 11:18 Review of Systems Review of Systems: All systems reviewed & are unremarkable except as noted in HPI and below Constitutional: Constitutional: Denies chills, Denies fever(s), Denies headache(s), Denies malaise and Denies weakness Eyes: Eyes: Denies change in vision, Denies eye discharge and Denies irritation ENT: Denies otalgia, Denies headache(s), Denies nasal congestion, Denies nasal discharge, Denies sinus pain and Denies sore throat Cardiovascular: Cardiovascular: Denies chest pain, Denies edema, Denies palpitations and Denies dyspnea Respiratory: Respiratory: Denies cough and Denies dyspnea Gastrointestinal: Gastrointestinal: Denies abdominal pain, Denies diarrhea, Denies nausea and Denies vomiting Genitourinary: Genitourinary: Denies hematuria, Denies nocturia, Denies dysuria, Denies flank pain, Denies urinary urgency and Reports vaginal pruritus Musculoskeletal: Musculoskeletal: Denies back pain and Denies numbness Integumentary/Breasts: Skin/Breast: Denies pruritus and Denies rash Neurologic: Denies headache(s), Denies numbness and Denies weakness Psychiatric: Psychiatric: Reports no additional psychiatric complaints Endocrine: Endocrine: Denies palpitations PMFSH Past Medical History Medical History No active medical problems Social History Social History Alcohol intake: former Substance use: current Substance use type: marijuana and crack/cocaine Comments At time of signature, agree with nursing past medical, surgical, social and family history. There is no relevant family history pertinent to the presenting complaint. Exam Const: General: cooperative, healthy appearing, comfortable, no acute distress and well nourished Nutritional Appearance: well nourished Orientation/consciousness: patient oriented x3 HENMT: Head: normocephalic and atraumatic Ears: external ears normal Face/Nose/Sinus: Normal external nose present, Normal nares present and normal facial exam Face and sinus: normal facial exam Eyes: General: appearance normal, both eyes and all related structures Pupils: Equal, round and reactive pupils present EOM: EOMs intact bilaterally Neck: Neck: normal visual inspection, full ROM and supple Chest: Chest palpation & inspection: normal inspection of the chest Resp: Effort & Inspection: normal respiratory effort and able to speak in complete sentences Cardio: Rate: tachycardic Rhythm: regular rhythm GI: Inspection: normal to inspection GI Palp: No abdominal tenderness and Yes Soft to palpation : General: Yes no CVA tenderness Back/Spine/Pelvis: Back: no CVA tenderness Skin: General skin exam: normal color and no rashes or lesions noted Neuro: General: patient oriented x3 and moves all extremities Cranial nerves: Yes Equal, round and reactive pupils present Extrem: General: normal to inspection and full ROM Psych: Appearance: grossly normal and well kempt Course Course Emergency Course: Patient is aware of diagnosis, understands and agrees to treatment plan. Anticipatory guidance given. Patient agrees to follow-up as directed and is aware of reasons to seek care at the emergency department. Portions of this record may have been created with voice recognition software Level of Care: Express Care Visit Vital Signs Vital signs: Vital Signs Temperature 36.7 C 06/09/25 11:22 Pulse Rate 106 H 06/09/25 11:22 Respiratory Rate 18 06/09/25 11:22 Blood Pressure 121/78 06/09/25 11:22 Pulse Oximetry 99 06/09/25 11:22 Oxygen Delivery Room Air 06/09/25 11:22 Temperature 36.7 C 06/09/25 11:22 Pulse Rate 106 H 06/09/25 11:22 Respiratory Rate 18 06/09/25 11:22 Blood Pressure 121/78 06/09/25 11:22 Pulse Oximetry 99 06/09/25 11:22 Oxygen Delivery Room Air 06/09/25 11:22 Reviewed MDM - Female Genitourinary MDM Narrative Medical decision making narrative: Patient waiting for urine culture to be started on antibiotics. Also send the urine off for STI testing; patient is non-toxic appearing and is in no distress. No CMT, adnexal tenderness, or evidence of pelvic etiology. Patient is appropriate for outpatient treatment and follow-up. Differential Diagnosis Differential diagnosis: Likely urinary tract infection, bacterial vaginosis, trichomoniasis, cervicitis, vaginitis and cystitis Medical Records Attestation: I reviewed the patient's medical records. Lab Data Attestation: I reviewed the patient's lab results. Labs: Lab Results 06/09/25 Range/Units 11:35 POC Urine Color Yellow POC Urine Clarity Cloudy POC Urine pH 6.0 POC Ur Specif [place] 1.025 POC Urine Protein Negative (Negative) POC Ur Glucose (UA) Negative (Negative) POC Urine Ketones Negative (Negative) POC Urine Blood 2+ (Negative) POC Urine Nitrite Negative (Negative) POC Urine Bilirubin Negative (Negative) POC Urine Urobilinogen 0.2 POC U Leukocyte Esteras 1+ (Negative) Discharge Plan Discharge Clinical Impression: Encounter for assessment of STD exposure Patient Disposition: Home Condition: Stable Instructions: Sexually Transmitted Diseases (ED) Additional Instructions: We will send a urine culture to the lab. If culture comes back and bacteria is present we will call and place you on antibiotic. Continue with increased water intake. Take Tylenol or ibuprofen as needed for pain or fever. Follow-up with primary care provider for urine recheck or see ER visit if condition worsens with high fever, nausea, vomiting, severe back pain You have been tested for potential gonorrhea, chlamydia, and trichomoniasis today. You will receive a phone call in 1-2 days with any positive results of today's testing. It is very important that you avoid unprotected intercourse for 7 days and until your partner(s) have been treated. Please encourage your partner(s) to seek testing and treatment. When you have been exposed to sexually transmitted infections, it is important that you seek comprehensive testing, since we do not provide testing for all sexually transmitted infections. Some infections can have no symptoms, but cause serious health problems. Contact your health care provider or report to the emergency department if: ? You have genital swelling or pain, or unusual bleeding. ? You have joint pain, rash, swollen lymph nodes or night sweats. ? You are severe abdominal pain. ? You have a fever. ? Symptoms do not go away or they get worse even after treatment. ? You have bleeding or pain during sex. Patient Language: Upper Sorbian Prescriptions: No Action No Home Medications Follow-up/Referrals: Elizabet Sterling DO [Physician, Family Practice] - 3 Days Time of Disposition: 11:41
[2025-06-09 11:22] VITALS: BP 121/78; PULSE 106; RESP 18; TEMP 36.7; O2SAT 99
[2025-06-09 11:44] LABS: EDUAAPPEAR Cloudy; EDUABILI Negative (Negative); EDUABLOOD 2+ (Negative); EDUACOLOR1 Yellow; EDUAGLUCOSE Negative (Negative); EDUAKETONE Negative (Negative); EDUALEUKO 1+ (Negative); EDUANITRATE Negative (Negative); EDUAPH 6.0; EDUAPROTEIN Negative (Negative); EDUASPGRAVITY 1.025; EDUAUROBILI 0.2
[2025-06-09 17:36] LABS: Trichomonas Vag PCR NOT DETECTED (NOT DETECTE)
== END 2025-06-09 11:44 | disposition home or self-care (01) ==
PROVIDERS: Emergency Provider Nurse Practitioner Family
DX: Z20.2 Contact with and (suspected) exposure to infections with a predominantly sexual mode of transmission (principal)
CPT/HCPCS: 81003; 87086; 87186; 87491; 87591; 87661; 99213; G0463